=== PATIENT | male | born 1960 | race Caucasian/White ===

== ENCOUNTER → 2018-02-23 09:59 | Outpatient (CLI) | payer OTHER, SELFPAY ==
[2018-02-23 11:02] LABS: Anion Gap 9 (5-15); BUN 15 mg/dL (7-18); BUN/Creat Ratio 12.3 RATIO (10-20); Calcium,Total 9.1 mg/dL (8.5-10.1); Chloride 104 mmol/L (98-107); Cholesterol 145 mg/dL (200); Creatinine, Serum 1.22 mg/dL (0.70-1.30); EST Glomerular Filtration Rate 65 mL/min (>60); Est Glom Filt Rate - Afr Amer 79 mL/min (>60); Glucose 92 mg/dL (74-106); High Density Lipoprotein 32 mg/dL; Potassium 3.6 mmol/L (3.5-5.1); Sodium Level 141 mmol/L (136-145); Triglycerides 294 mg/dL; Very Low Density Lipoprotein 59 mg/dL (5-40)
== END ==
PROVIDERS: Family Provider Family Medicine; PCP Family Medicine; Visit Provider Family Medicine
DX: I10 Essential (primary) hypertension (principal)
CPT/HCPCS: 36415; 80048; 80061

== ENCOUNTER → 2018-08-31 09:32 | Outpatient (CLI) | payer OTHER, SELFPAY ==
[2018-08-31 11:19] LABS: Anion Gap 6 (5-15); BUN 12 mg/dL (7-18); BUN/Creat Ratio 10.7 RATIO (10-20); Calcium,Total 8.6 mg/dL (8.5-10.1); Chloride 107 mmol/L (98-107); Cholesterol 150 mg/dL (200); Creatinine, Serum 1.12 mg/dL (0.70-1.30); EST Glomerular Filtration Rate 72 mL/min (>60); Est Glom Filt Rate - Afr Amer 87 mL/min (>60); Glucose 88 mg/dL (74-106); High Density Lipoprotein 28 mg/dL; Potassium 3.6 mmol/L (3.5-5.1); Sodium Level 141 mmol/L (136-145); Triglycerides 335 mg/dL; Very Low Density Lipoprotein 67 mg/dL (5-40)
== END ==
PROVIDERS: Family Provider Family Medicine; PCP Family Medicine; Referring Provider Family Medicine; Visit Provider Family Medicine
DX: I10 Essential (primary) hypertension (principal)
CPT/HCPCS: 36415; 80048; 80061

== ENCOUNTER → 2019-03-01 | Outpatient (CLI) | payer OTHER, SELFPAY ==
[2016-11-06 17:56] VITALS: BMI 36.0
[2019-03-01 10:21] LABS: Cholesterol 174 mg/dL (200); High Density Lipoprotein 29 mg/dL; Triglycerides 373 mg/dL; Very Low Density Lipoprotein 75 mg/dL (5-40)
== END | disposition home or self-care (01) ==
PROVIDERS: Family Provider Family Medicine; PCP Family Medicine; Referring Provider Family Medicine; Visit Provider Family Medicine
DX: E78.00 Pure hypercholesterolemia, unspecified (principal)
CPT/HCPCS: 36415; 80061

== ENCOUNTER → 2019-06-23 | Outpatient (CLI) | payer OTHER, SELFPAY ==
[2019-06-23 15:52] LABS: Uric Acid 7.1 mg/dL (3.5-7.2)
== END | disposition home or self-care (01) ==
LOC: MFPLAB 13:45
PROVIDERS: Family Provider Family Medicine; PCP Family Medicine; Visit Provider Family Medicine
DX: M10.9 Gout, unspecified (principal)
CPT/HCPCS: 36415; 84550

== ENCOUNTER → 2019-09-27 08:42 | Outpatient (CLI) | payer OTHER, SELFPAY ==
[2016-11-06 17:56] VITALS: BMI 36.0
[2019-09-27 09:48] LABS: Anion Gap 9 (5-15); BUN 17 mg/dL (7-18); BUN/Creat Ratio 14.9 RATIO (10-20); Calcium,Total 9.1 mg/dL (8.5-10.1); Chloride 105 mmol/L (98-107); Cholesterol 177 mg/dL (200); Creatinine, Serum 1.14 mg/dL (0.70-1.30); EST Glomerular Filtration Rate 70 mL/min (>60); Est Glom Filt Rate - Afr Amer 85 mL/min (>60); Glucose 94 mg/dL (74-106); High Density Lipoprotein 26 mg/dL; Potassium 3.6 mmol/L (3.5-5.1); Sodium Level 143 mmol/L (136-145); Triglycerides 356 mg/dL; Very Low Density Lipoprotein 71 mg/dL (5-40)
== END ==
PROVIDERS: Family Provider Family Medicine; PCP Family Medicine; Referring Provider Family Medicine; Visit Provider Family Medicine
DX: I10 Essential (primary) hypertension (principal)
CPT/HCPCS: 36415; 80048; 80061

== ENCOUNTER → 2020-07-10 09:34 | Outpatient (CLI) | payer OTHER, SELFPAY ==
[2016-11-06 17:56] VITALS: BMI 36.0
[2020-07-10 11:03] LABS: Anion Gap 7 (5-15); BUN 19 mg/dL (7-18); BUN/Creat Ratio 14.8 RATIO (10-20); Calcium,Total 9.2 mg/dL (8.5-10.1); Chloride 107 mmol/L (98-107); Cholesterol 170 mg/dL (200); Creatinine, Serum 1.28 mg/dL (0.70-1.30); EST Glomerular Filtration Rate 61 mL/min (>60); Est Glom Filt Rate - Afr Amer 74 mL/min (>60); Glucose 94 mg/dL (74-106); High Density Lipoprotein 29 mg/dL; Potassium 3.5 mmol/L (3.5-5.1); Sodium Level 140 mmol/L (136-145); Triglycerides 339 mg/dL; Very Low Density Lipoprotein 68 mg/dL (5-40)
[2020-07-10 11:46] LABS: Microalbumin,Random Urine 7.7 mg/L (NO RANGE EST.); Microalbumin:Creatinine Ratio 5.2 mg/g CRE (<30 mg/g CRE)
== END ==
PROVIDERS: PCP Family Medicine; Referring Provider Family Medicine; Visit Provider Family Medicine
DX: I10 Essential (primary) hypertension (principal)
CPT/HCPCS: 80048; 80061; 82043; 82570

== ENCOUNTER → 2021-01-15 09:00 | Outpatient (CLI) | payer OTHER, SELFPAY ==
[2016-11-06 17:56] VITALS: BMI 36.0
[2021-01-15 10:34] LABS: Anion Gap 7 (5-15); BUN 16 mg/dL (7-18); BUN/Creat Ratio 13.8 RATIO (10-20); Calcium,Total 9.3 mg/dL (8.5-10.1); Chloride 105 mmol/L (98-107); Cholesterol 160 mg/dL (200); Creatinine, Serum 1.16 mg/dL (0.70-1.30); EST Glomerular Filtration Rate 68 mL/min (>60); Est Glom Filt Rate - Afr Amer 83 mL/min (>60); Glucose 84 mg/dL (74-106); High Density Lipoprotein 42 mg/dL; Potassium 3.8 mmol/L (3.5-5.1); Sodium Level 142 mmol/L (136-145); Triglycerides 218 mg/dL; Very Low Density Lipoprotein 44 mg/dL (5-40)
== END ==
PROVIDERS: PCP Family Medicine; Referring Provider Family Medicine; Visit Provider Family Medicine
DX: I10 Essential (primary) hypertension (principal)
CPT/HCPCS: 36415; 80048; 80061

== ENCOUNTER → 2021-07-16 09:32 | Outpatient (CLI) | payer OTHER, SELFPAY ==
[2021-07-16 11:07] LABS: Anion Gap 10 (5-15); BUN 25 mg/dL (7-18); BUN/Creat Ratio 14.6 RATIO (10-20); Calcium,Total 9.2 mg/dL (8.5-10.1); Chloride 106 mmol/L (98-107); Cholesterol 168 mg/dL (200); Creatinine, Serum 1.71 mg/dL (0.70-1.30); EST Glomerular Filtration Rate 44 mL/min (>60); Est Glom Filt Rate - Afr Amer 53 mL/min (>60); Glucose 106 mg/dL (74-106); High Density Lipoprotein 32 mg/dL; Potassium 3.7 mmol/L (3.5-5.1); Sodium Level 141 mmol/L (136-145); Triglycerides 240 mg/dL; Very Low Density Lipoprotein 48 mg/dL (5-40)
== END ==
PROVIDERS: PCP Family Medicine; Referring Provider Family Medicine; Visit Provider Family Medicine
DX: I10 Essential (primary) hypertension (principal)
CPT/HCPCS: 36415; 80048; 80061

== ENCOUNTER 2021-11-07 07:59 | Outpatient (CLI) | payer OTHER, SELFPAY | END 2021-11-07 23:59 | disposition short-term general hospital (02) | LOC: LABSPEC 11-08 07:59 | PROVIDERS: PCP Family Medicine; Referring Provider Family Medicine; Visit Provider Family Medicine | DX: U07.1 COVID-19 (principal) | CPT/HCPCS: 87635; U0003; U0005 ==

== ENCOUNTER → 2023-04-25 | Outpatient (CLI) | payer OTHER, SELFPAY ==
[2023-04-25 15:43] LABS: Absolute Lymphocyte Count 2.32 X10^3/uL (0.83-4.51); Absolute Neutrophil Count 7.2 X10^3/uL (2.0-7.7); Basophil# 0.07 X10^3/uL; Basophil% 0.6 % (0-1); Eosinophil# 0.18 X10^3/uL; Eosinophils% 1.7 % (0-5); Hematocrit 41.8 % (40-54); Hemoglobin 13.7 g/dL (13.0-16.5); Lymphocyte # 2.32 X10^3/ul (0.83-4.51); Lymphocyte % 21.5 % (19-41); Mean Corp Hgb Conc 32.8 g/dL (32-36); Mean Corpuscular Hgb 32.2 pg (27.0-32.0); Mean Corpuscular Volume 98.4 fL (80-94); Mean Platelet Vol. 10.8 fl (6.2-12.0); Monocyte# 0.94 X10^3/uL; Monocyte% 8.7 % (0-10); NRBC Flagged by Analyzer 0 % (0-5); Neutrophil # 7.21 X10^3/uL (2.7-7.7); Neutrophil % 66.9 % (47-70); Platelet Count 363 K/mm3 (150-450); RBC Distribution Width CV 12.8 % (11.6-14.6); RBC Distribution Width SD 45.9 fl (35.1-43.9); Red Blood Count 4.25 M/mm3 (4.6-6.2); White Blood Count 10.8 K/mm3 (4.4-11.0)
[2023-04-25 16:34] LABS: Anion Gap 6 (5-15); BUN 23 mg/dL (7-18); BUN/Creat Ratio 16.1 RATIO (10-20); Calcium,Total 9.5 mg/dL (8.5-10.1); Chloride 101 mmol/L (98-107); Creatinine, Serum 1.43 mg/dL (0.70-1.30); EST Glomerular Filtration Rate 53 mL/min (>60); Est Glom Filt Rate - Afr Amer 65 mL/min (>60); Glucose 99 mg/dL (74-106); Potassium 3.5 mmol/L (3.5-5.1); Sodium Level 135 mmol/L (136-145)
== END | disposition home or self-care (01) ==
LOC: MFPLAB 12:16
PROVIDERS: PCP Family Medicine; Visit Provider Family Medicine
DX: R60.0 Localized edema (principal)
CPT/HCPCS: 36415; 80048; 83880; 85025

== ENCOUNTER → 2023-05-02 | Outpatient (CLI) | payer OTHER, SELFPAY ==
--- NOTE | 2023-05-02 15:38 | VDLE_ITS ---
Reason For Study: RLE Pain RIGHT GSV is normal. CFV is compressible, spontaneous, phasic, competent and demonstrates normal augmentation. FV is compressible, spontaneous, phasic, competent and demonstrates normal augmentation. POP V is compressible, spontaneous, phasic, competent and demonstrates normal augmentation. T/P Trunk is compressible. PTV is compressible. RT PerV is compressible. Procedure This is a venous duplex using B-mode, color flow and spectral Doppler. Exam performed in department. The exam was diagnostic. A preliminary report was called and/or faxed to Dr. Duran office. VL/Venous Duplex US, Unilateral Interpretation Summary Deep veins of the right lower extremity are patent and compressible segmentally . There is no evidence of right lower extremity deep vein thrombosis. Valvular competence darlene ears intact within the proximal deep venous system on the right . The right great saphenous vein a ppears patent and compressible segmentally. Ordering Physician: Akhil Duran Referring Physician: Akhil Duran Performed By: Rojas Jimenez RVT
== END | disposition home or self-care (01) ==
LOC: CVS 14:51
PROVIDERS: PCP Family Medicine; Referring Provider Family Medicine; Visit Provider Family Medicine
DX: M79.604 Pain in right leg (principal)
CPT/HCPCS: 93971

== ENCOUNTER → 2023-12-29 | Outpatient (CLI) | payer OTHER, SELFPAY ==
--- OUTSIDE RECORDS SUMMARY | 2023-12-29 08:22 | XMS RPT_ITS | CCD ---
Author Name Unknown Address [address] [place] [address] Organization [facility] Allergies Allergy Classification Reported Allergen(s) Allergy Type Date of Onset Reaction(s) Facility (1 source) Erythromycin; Translations: [ERYTHROMYCIN] Drug Allergy 2 [facility] Repository (1 source) Penicillins; Translations: [PENICILLINS] Propensity to adverse reactions to drug (disorder) 2 [facility] Repository Results Test Name Value Interpretation Reference Range Facil ity Encounters Encounter Date Encounter Type Care Provider Facility Start: 01-15-2019 End: 01-16-2019 Patient encounter procedure [facility] Summary Purpose Family History No Family History Records Found Advance Directives No Advanced Directives Records Found Additional Source Comments (unrecognized sect ion and content) No Status Records Found INFORMATION SOURCE (unrecogn ized section and content) FOR RECORDS PERTAINING TO PATIENTS WHO ARE OR HAVE BEEN ENROLLED IN A CHEMICAL DEPENDENCY/SUBSTANCEABUSE PROGRAM, SOME INFORMATION MAY BE OMITTED. This clinical summary was aggregated from multiple sources. Caution should be exercised in using it in the provision of clinical care. This summary normalizes information from multiple sources, and as a consequence, information in this document may materially change the coding, format and clinical context of patient data. In addition, data may be omitted in some cases. CLINICAL DECISIONS SHOULD BE BASED ON THE PRIMARY CLINICAL RECORDS. [employer] provides no warranty or guarantee of the accuracy or completeness of information in this document.
[2023-12-29 10:02] LABS: Anion Gap 7 (5-15); BUN 14 mg/dL (7-18); Calcium,Total 9.6 mg/dL (8.5-10.1); Chloride 109 mmol/L (98-107); Cholesterol 208 mg/dL (200); Creatinine, Serum 1.27 mg/dL (0.70-1.30); EST Glomerular Filtration Rate 61 mL/min (>60); Est Glom Filt Rate - Afr Amer 74 mL/min (>60); Glucose 91 mg/dL (74-106); High Density Lipoprotein 31 mg/dL; PSA,Total - Annual Screen 2.08 ng/mL (0.00-4.00); Potassium 3.5 mmol/L (3.5-5.1); Sodium Level 142 mmol/L (136-145); Triglycerides 310 mg/dL; Very Low Density Lipoprotein 62 mg/dL (5-40)
== END | disposition home or self-care (01) ==
LOC: LAB 08:20
PROVIDERS: PCP Family Medicine; Referring Provider Family Medicine; Visit Provider Family Medicine
DX: Z00.00 Encounter for general adult medical examination without abnormal findings (principal)
CPT/HCPCS: 36415; 80048; 80061; 84153; G0103

== ENCOUNTER → 2024-05-31 | Outpatient (CLI) | payer OTHER, SELFPAY ==
[2024-05-31 10:25] LABS: Anion Gap 10 (5-15); BUN 15 mg/dL (7-18); BUN/Creat Ratio 10.2 RATIO (10-20); Calcium,Total 9.2 mg/dL (8.5-10.1); Chloride 106 mmol/L (98-107); Cholesterol 174 mg/dL (200); Creatinine, Serum 1.47 mg/dL (0.70-1.30); EST Glomerular Filtration Rate 51 mL/min (>60); Est Glom Filt Rate - Afr Amer 62 mL/min (>60); Glucose 98 mg/dL (74-106); High Density Lipoprotein 29 mg/dL; Potassium 3.6 mmol/L (3.5-5.1); Sodium Level 139 mmol/L (136-145); Triglycerides 336 mg/dL; Very Low Density Lipoprotein 67 mg/dL (5-40)
== END | disposition home or self-care (01) ==
LOC: LAB 09:05
PROVIDERS: PCP Family Medicine; Referring Provider Family Medicine; Visit Provider Family Medicine
DX: I10 Essential (primary) hypertension (principal)
CPT/HCPCS: 36415; 80048; 80061

== ENCOUNTER 2024-08-31 09:00 | Inpatient (IN) | payer OTHER, SELFPAY ==
[2024-08-31] VITALS (13 sets, daily range): BP systolic 131–155; BP diastolic 70–118; PULSE 113–145; RESP 18–34; TEMP 36.6–37.9; O2SAT 93–98; BMI 36.0; BMI 37.0
[2024-08-31] MEDS: Ipratropium/Albuterol Sulfate 3 ML AMPUL.NEB INHALATION (09:27)
[2024-08-31 09:32] LABS: Absolute Lymphocyte Count 1.59 X10^3/uL (0.83-4.51); Absolute Neutrophil Count 8.8 X10^3/uL (2.0-7.7); Basophil# 0.07 X10^3/uL; Basophil% 0.6 % (0-1); Hematocrit 44.8 % (40-54); Hemoglobin 15.3 g/dL (13.0-16.5); Lymphocyte # 1.59 X10^3/ul (0.83-4.51); Lymphocyte % 13.9 % (19-41); Mean Corp Hgb Conc 34.2 g/dL (32-36); Mean Corpuscular Hgb 32.4 pg (27.0-32.0); Mean Corpuscular Volume 94.9 fL (80-94); Mean Platelet Vol. 10.4 fl (6.2-12.0); Monocyte# 0.88 X10^3/uL; Monocyte% 7.7 % (0-10); NRBC Flagged by Analyzer 0 % (0-5); Neutrophil # 8.82 X10^3/uL (2.7-7.7); Neutrophil % 77.2 % (47-70); Platelet Count 292 K/mm3 (150-450); RBC Distribution Width CV 12.8 % (11.6-14.6); RBC Distribution Width SD 44.8 fl (35.1-43.9); Red Blood Count 4.72 M/mm3 (4.6-6.2); White Blood Count 11.4 K/mm3 (4.4-11.0)
[2024-08-31 09:53] LABS: Anion Gap 14 (5-15); BUN 14 mg/dL (7-18); BUN/Creat Ratio 7.5 RATIO (10-20); Calcium,Total 9.2 mg/dL (8.5-10.1); Chloride 101 mmol/L (98-107); Creatinine, Serum 1.86 mg/dL (0.70-1.30); EST Glomerular Filtration Rate 39 mL/min (>60); Est Glom Filt Rate - Afr Amer 47 mL/min (>60); Estimated Creatinine Clearance 51.37 ml/min; Glucose 163 mg/dL (74-106); Potassium 2.8 mmol/L (3.5-5.1); Sodium Level 138 mmol/L (136-145); Troponin-I HS 111 pg/mL (3.0-78.0)
[2024-08-31] MEDS: levoFLOXacin IV 750 MG/150 ML BAG 100 MG IV (10:38)
[2024-08-31 11:09] LABS: Lactic Acid 2.3 mmol/L (0.4-1.9)
[2024-08-31] MEDS: 0.9% Normal Saline (1000mL) 1,000 ML 999 ML IV (11:20)
[2024-08-31] MEDS: Acetaminophen 500 MG Tablet 1000 MG PO (11:22)
[2024-08-31] MEDS: KCl 20MEQ in D5NS 20 MEQ/1,000 ML IV.SOLN. 150 MEQ IV ×2 (13:29→21:16)
[2024-08-31] MEDS: Potassium Chloride Oral Tablet 20 MEQ 60 MEQ PO (13:29)
[2024-08-31 14:39] LABS: Reflex Lactate? Y
[2024-08-31 16:04] LABS: Lactic Acid 2.7 mmol/L (0.4-1.9)
[2024-08-31] MEDS: Albuterol 2.5 MG/3 ML VIAL.NEB. INHALATION ×2 (16:09→22:36)
[2024-08-31] MEDS: Metoprolol Tartrate 100 MG Tablet PO (21:09)
[2024-08-31] MEDS: Acetaminophen 325 MG Tablet 650 MG PO (21:09)
[2024-08-31] MEDS: Heparin Injection (Vial) 5,000 UNIT/ML VIAL 5000 UNIT SC (21:10)
[2024-08-31] MEDS: cloNIDine HCl 0.1 MG Tablet PO (21:10)
[2024-09-01] VITALS (10 sets, daily range): BP systolic 118–140; BP diastolic 79–90; PULSE 87–151; RESP 16–20; TEMP 36.5–37; O2SAT 96–98
[2024-09-01] MEDS: KCl 20MEQ in D5NS 20 MEQ/1,000 ML IV.SOLN. 150 MEQ IV (04:18)
[2024-09-01 05:55] LABS: Absolute Lymphocyte Count 1.59 X10^3/uL (0.83-4.51); Absolute Neutrophil Count 4.6 X10^3/uL (2.0-7.7); Basophil# 0.03 X10^3/uL; Basophil% 0.4 % (0-1); Eosinophil# 0.02 X10^3/uL; Eosinophils% 0.3 % (0-5); Hematocrit 36.5 % (40-54); Hemoglobin 12.1 g/dL (13.0-16.5); Lymphocyte # 1.59 X10^3/ul (0.83-4.51); Lymphocyte % 22.8 % (19-41); Mean Corp Hgb Conc 33.2 g/dL (32-36); Mean Corpuscular Hgb 32.3 pg (27.0-32.0); Mean Corpuscular Volume 97.3 fL (80-94); Mean Platelet Vol. 10.3 fl (6.2-12.0); NRBC Flagged by Analyzer 0 % (0-5); Neutrophil # 4.59 X10^3/uL (2.7-7.7); Neutrophil % 65.9 % (47-70); Platelet Count 194 K/mm3 (150-450); RBC Distribution Width CV 13.1 % (11.6-14.6); Red Blood Count 3.75 M/mm3 (4.6-6.2)
[2024-09-01 06:42] LABS: Anion Gap 5 (5-15); BUN 13 mg/dL (7-18); BUN/Creat Ratio 8.6 RATIO (10-20); Calcium,Total 7.8 mg/dL (8.5-10.1); Chloride 110 mmol/L (98-107); Creatinine, Serum 1.52 mg/dL (0.70-1.30); EST Glomerular Filtration Rate 49 mL/min (>60); Est Glom Filt Rate - Afr Amer 60 mL/min (>60); Estimated Creatinine Clearance 63.75 ml/min; Glucose 148 mg/dL (74-106); Potassium 3.5 mmol/L (3.5-5.1); Sodium Level 140 mmol/L (136-145)
[2024-09-01] MEDS: Albuterol 2.5 MG/3 ML VIAL.NEB. INHALATION ×3 (07:17→19:25)
[2024-09-01] MEDS: Lisinopril 20 MG Tablet PO ×2 (09:28→20:47)
[2024-09-01] MEDS: Acetaminophen 325 MG Tablet 650 MG PO (09:28)
[2024-09-01] MEDS: amLODIPine 10 MG Tablet PO (09:28)
[2024-09-01] MEDS: cloNIDine HCl 0.1 MG Tablet PO ×2 (09:28→20:47)
[2024-09-01] MEDS: Heparin Injection (Vial) 5,000 UNIT/ML VIAL 5000 UNIT SC (09:28)
[2024-09-01] MEDS: MethylPREDNISolone 125 MG/2 ML Vial 60 MG IV (09:29)
[2024-09-01] MEDS: Doxycycline 100 MG in Dextrose 5%-Water (250mL Bag) 250 ML 250 MG IV (09:58)
[2024-09-01 12:07] LABS: D-Dimer Quantitative (DVT/PE) 0.68 FEU/ug/m (0.27-0.49)
[2024-09-01 12:17] LABS: BNP,B-Type NATRIURETIC PEPTIDE 147.5 pg/mL (0-100)
[2024-09-01] MEDS: Ceftriaxone 1 GM/50 ML BAG IV (12:23)
[2024-09-01] MEDS: Furosemide 40 MG/4 ML Vial IV (13:05)
[2024-09-01] MEDS: Enoxaparin 40 MG/0.4 ML Syringe SC (14:28)
[2024-09-01 15:21] LABS: Troponin-I HS 70 pg/mL (3.0-78.0)
[2024-09-01] MEDS: hydroCHLOROthiazide 25 MG Tablet PO (20:47)
[2024-09-01] MEDS: Metoprolol Tartrate 100 MG Tablet PO (20:48)
[2024-09-01] MEDS: Fenofibrate 145 MG Tablet PO (20:48)
[2024-09-01] MEDS: 0.9% Saline Lock 10 ML Syringe IV (20:49)
[2024-09-02] VITALS (8 sets, daily range): BP systolic 114–156; BP diastolic 81–90; PULSE 78–110; RESP 16–20; TEMP 36.4–36.7; O2SAT 95–98
[2024-09-02] MEDS: Albuterol 2.5 MG/3 ML VIAL.NEB. INHALATION ×3 (01:21→13:30)
[2024-09-02] MEDS: 0.9% Saline Lock 10 ML Syringe IV (05:48)
[2024-09-02 07:23] LABS: Hematocrit 35.8 % (40-54); Mean Corp Hgb Conc 33.5 g/dL (32-36); Mean Corpuscular Hgb 32.3 pg (27.0-32.0); Mean Corpuscular Volume 96.5 fL (80-94); Mean Platelet Vol. 11.3 fl (6.2-12.0); Platelet Count 234 K/mm3 (150-450); RBC Distribution Width CV 13.2 % (11.6-14.6); RBC Distribution Width SD 46.9 fl (35.1-43.9); Red Blood Count 3.71 M/mm3 (4.6-6.2); White Blood Count 7.7 K/mm3 (4.4-11.0)
[2024-09-02 08:03] LABS: Anion Gap 11 (5-15); BUN 18 mg/dL (7-18); BUN/Creat Ratio 12.1 RATIO (10-20); Calcium,Total 8.1 mg/dL (8.5-10.1); Chloride 103 mmol/L (98-107); Creatinine, Serum 1.49 mg/dL (0.70-1.30); EST Glomerular Filtration Rate 51 mL/min (>60); Est Glom Filt Rate - Afr Amer 61 mL/min (>60); Estimated Creatinine Clearance 65.04 ml/min; Glucose 155 mg/dL (74-106); Magnesium 1.5 mg/dL (1.6-2.6); Phosphorus 2.1 mg/dL (2.5-4.9); Potassium 3.1 mmol/L (3.5-5.1); Sodium Level 136 mmol/L (136-145)
[2024-09-02] MEDS: cloNIDine HCl 0.1 MG Tablet PO (08:19)
[2024-09-02] MEDS: amLODIPine 10 MG Tablet PO (08:19)
[2024-09-02] MEDS: Lisinopril 20 MG Tablet PO (08:19)
[2024-09-02] MEDS: Ceftriaxone 1 GM/50 ML BAG IV (08:20)
[2024-09-02] MEDS: hydroCHLOROthiazide 25 MG Tablet PO (08:20)
[2024-09-02] MEDS: Enoxaparin 40 MG/0.4 ML Syringe SC (08:20)
[2024-09-02] MEDS: Potassium Chloride Oral Tablet 20 MEQ 40 MEQ PO (10:46)
[2024-09-02] MEDS: Sodium Phosphate/Na Biphos 21 MMOL in 0.9% Normal Saline (250mL Bag) 250 ML 84 MMOL IV (11:38)
[2024-09-02] MEDS: Magnesium Sulfate 2 GM in Dextrose 5%-Water (100mL Bag) 100 ML IV (11:38)
== END 2024-09-02 15:06 | disposition home or self-care (01) | DRG 194 ==
LOC: ED 09:44 → PCU 11:46
PROVIDERS: Admitting Provider Internal Medicine; Emergency Provider Emergency Medicine; PCP Family Medicine; Visit Provider Internal Medicine
DX: J15.3 Pneumonia due to streptococcus, group B (principal); E87.20 Acidosis, unspecified; N18.31 Chronic kidney disease, stage 3a; I12.9 Hypertensive chronic kidney disease with stage 1 through stage 4 chronic kidney disease, or unspecified chronic kidney disease; Z68.37 Body mass index [BMI] 37.0-37.9, adult; E78.5 Hyperlipidemia, unspecified; E87.6 Hypokalemia; R79.89 Other specified abnormal findings of blood chemistry; R73.9 Hyperglycemia, unspecified; E66.9 Obesity, unspecified; Z79.2 Long term (current) use of antibiotics; R09.02 Hypoxemia
CPT/HCPCS: 36415; 71046; 80048; 83605; 83735; 83880; 84100; 84484; 85025; 85027; 85379; 87040; 87070; 87077; 87205; 87449; 87631; 87633; 93005; 94640; 94668; 99285; J7030; J7040; J7050; A4216; J1940

== ENCOUNTER → 2024-12-06 | Outpatient (CLI) | payer OTHER, SELFPAY ==
[2024-12-06 10:04] LABS: Anion Gap 7 (5-15); BUN 12 mg/dL (7-18); BUN/Creat Ratio 9.8 RATIO (10-20); Calcium,Total 9.4 mg/dL (8.5-10.1); Chloride 105 mmol/L (98-107); Cholesterol 170 mg/dL (200); Creatinine, Serum 1.23 mg/dL (0.70-1.30); EST Glomerular Filtration Rate 63 mL/min (>60); Est Glom Filt Rate - Afr Amer 76 mL/min (>60); Glucose 95 mg/dL (74-106); High Density Lipoprotein 36 mg/dL; Potassium 3.6 mmol/L (3.5-5.1); Sodium Level 138 mmol/L (136-145); Triglycerides 234 mg/dL; Very Low Density Lipoprotein 47 mg/dL (5-40)
== END | disposition home or self-care (01) ==
LOC: LAB 08:59
PROVIDERS: PCP Family Medicine; Referring Provider Family Medicine; Visit Provider Family Medicine
DX: I10 Essential (primary) hypertension (principal)
CPT/HCPCS: 36415; 80048; 80061

== ENCOUNTER → 2025-06-04 | Outpatient (CLI) | payer OTHER, SELFPAY ==
--- NOTE | 2025-06-04 08:47 | RAD_ITS ---
PROCEDURE: THORACIC SPINE 2 VIEWS 06/04/2025 REASON FOR EXAM: BACK ACHE TECHNIQUE: THORACIC SPINE 2 VIEWS COMPARISON: None. RAD/Thoracic Spine 2 Views IMPRESSION: Mild degenerative changes are seen throughout the thoracic spine, but with exte nsive/exuberant DISH also seen. No fracture or subluxation is evident. Reading Location: [place] [id number]
[2025-06-04 12:22] LABS: AST(SGOT) 25 U/L (<=37); Alanine Aminotransfer ALT/SGPT 16 U/L (<=46); Albumin, Serum 4.2 g/dL (3.4-4.8); Alkaline Phosphatase 39 U/L (40-129); Anion Gap 16 (5-15); BUN 18 mg/dL (4-19); BUN/Creat Ratio 12.0 RATIO (10-20); Calcium,Total 9.6 mg/dL (7.6-11.0); Carbon Dioxide 21.7 mmol/L (21.0-32.0); Chloride 102 mmol/L (98-108); Cholesterol 174 mg/dL (<=200); Globulin 3.2 g/dL (2.2-4.2); Glucose 95 mg/dL (70-99); Low Density Lipoprotein Calc. 86 mg/dL; Potassium 3.9 mmol/L (3.3-5.1); Triglycerides 223 mg/dL; Very Low Density Lipoprotein 45 mg/dL (5-40); cholesterol:hdl ratio screen 4.02
[2025-06-04 13:10] LABS: Creatinine, Urine (random) 231.00 mg/dL (39.00-259.00); Microalbumin,Random Urine < 12.0 mg/L (<20 mg/L)
== END | disposition home or self-care (01) ==
LOC: MTLAB 08:45
PROVIDERS: PCP Family Medicine; Referring Provider Family Medicine; Visit Provider Family Medicine
DX: M54.9 Dorsalgia, unspecified (principal); I10 Essential (primary) hypertension
CPT/HCPCS: 36415; 72070; 80053; 80061; 82043; 82570

== ENCOUNTER → 2025-09-16 | Outpatient (CLI) | payer OTHER, SELFPAY ==
--- OUTSIDE RECORDS SUMMARY | 2025-09-16 06:33 | XMS RPT_ITS | CCD ---
Author Organization [facility] Inform ion Partnership [facility] Care Team Providers Care Assistant Professor Of Mathematics Name Role Phone Akhil Cox MD Primary Care Provider Brooke MALDONADO, Dr. Landaverde Primary Care Provider Brooke MALDONADO, Dr. Landaverde Attending Provider Brooke MALDONADO, Dr. Landaverde Referring Provider Brooke MALDONADO, Akhil Malhotra Primary Care Provider AKHIL COX Primary Care Unavailable AKHIL COX Primary Care Unavailable HEENA HARRIS Referring Unavailable COX, AKHIL Malhotra Primary Care Unavailable HEENA HARRIS Attending Unavailable BRANDI BIRMINGHAM Referring Unavailable BROOKE, AKHIL Malhotra Primary Care Unavailable BRANDI BIRMINGHAM Attending Unavailable AKHIL COX Primary Care Unavailable Cox, Akhil Referring Unavailable Cox, Akhil Attending Unavailable Cox, Akhil Primary Care Unavailable Cox, Akhil Attending Unavailable Brooke, Akhil Primary Care Unavailable Akhil Cox Referring Unavailable Afia Lebron Referring Unavailable Afia Lebron Attending Unavailable Cox, Akhil Primary Care Unavailable Cox, Akhil Referring Unavailable BernardinoAfia goodwin Attending Unavailable Cox, Akhil Primary Care Unavailable Ron, Mario Attending Unavailable Brooke, Akhil Primary Care Unavailable Allergies Allergy Classification Reported Allergen(s) Allergy Type Date of Onset Reaction(s) Facility (5 sources) Erythromycin Drug Allergy 2 [facility] (3 sources) Penicillins; Translations: [PENICILLINS] Allergy to substance 2 [facility] (1 source) Penicillins Drug Intolerance 2 [facility] (2 sources) Penicillins Drug Intolerance 2 [facility] (1 source) Erythromycin; Translations: [ERYTHROMYCIN] Drug Allergy 2 [facility] (1 source) Erythromycin Drug Allergy 5 [facility] (1 source) Penicillins Drug allergy (disorder) 5 [facility] Medications Current Medications Medication Drug Class(es) Dates Sig (Normalized) Sig (Original) amLODIPine 10 mg oral tablet (5 sources) Dihydropyridine Calcium Channel César Start: 10-27-2016 take 1 tablet by mouth once daily Amlodipine (Norvasc) 10 MG tablet Active 10 mg PO DAILY October 27, 2016 1:00am Start: 01-18-2012 take 1 tablet by sebastian th once daily amLODIPine (NORVASC) 5 mg ORAL tablet Take 1 tablet by mouth once daily. 0 01/18/2012 Active benzonatate 100 mg oral capsule (2 sources) Non-narcotic Antitussive Start: 06-16-2025 take 2 capsules by mouth three times daily as needed benzonatate (TESSALON PERLE) 100 mg capsule Indications: Acute cough Take 2 capsules by mouth three times a day as needed. 60 capsule 06/16/2025 Active Start: 09-02-2024 take 1 capsule by mo uth three times daily as needed for cough Benzonatate 100 mg capsule Active 100 mg PO THREE TIMES A DAY as needed for cough 21 September 02, 2024 12:57pm cefdinir 300 mg oral capsule (1 source) Cephalosporin Antibacterial Start: 09-02-2024 take 1 capsule by mouth twice daily Cefdinir 300 mg capsule Active 300 mg PO TWICE A DAY 10 September 02, 2024 1:00am clindamycin 150 mg oral capsule (3 sources) Lincosamide Antibacterial Start: 01-15-2019 clindamycin (CLEOCIN) 150 mg capsule Take 1 capsule by mouth as needed (1 hour before dental procedures). 01/15/2019 Active cloNIDine hydrochloride 0.1 mg oral tablet (5 sources) Central alpha-2 Adrenergic Agonist Start: 10-27-2016 take 1 tablet by mouth twice daily Clonidine Hcl 0.1 MG tablet Active 0.1 mg PO TWICE A DAY October 27, 2016 1:00am fenofibrate 145 mg oral tablet (5 sources) Peroxisome Proliferator Receptor alpha Agonist Start: 10-27-2016 take 1 tablet by mouth at bedtime Fenofibrate Nanocrystallized 145 MG tablet Active 145 mg PO AT BEDTIME October 27, 2016 1:00am Start: 01-18-2012 take 1 tablet by sebastian th once daily fenofibrate nanocrystallized (TRICOR) 48 mg ORAL tablet Take 1 tablet by mouth once daily. 0 01/18/2012 Active hydroCHLOROthiazide 25 mg / lisinopril 20 mg oral tablet (5 sources) Thiazide Diuretic, Angiotensin Converting Enzyme Inhibitor Start: 10-27-2016 take 1 tablet by mouth twice daily Lisinopril-Hydrochlorothiazide (Zestoretic) 1 EACH tablet Active 1 NMA PO TWICE A DAY October 27, 2016 1:00am Start: 01-18-2012 take 1 tablet by sebastian th once daily lisinopril-hydrochlorothiazide 20-12.5 m g ORAL per tablet Take 1 tablet by mouth once daily. 0 01/18/2012 Active metoprolol tartrate 100 mg oral tablet (5 sources) beta-Adrenergic César Start: 10-27-2016 take 1 tablet by mouth at bedtime Metoprolol Tartrate 100 MG tablet Active 100 mg PO AT BEDTIME October 27, 2016 1:00am Start: 01-18-2012 take 1 tablet by sebastian th once daily metoprolol succinate XL, long acting, 25 mg ORAL 24 hr tablet Take 1 tablet by mouth once daily. 30 tablet 0 01/18/2012 Active abuse-deterrent 12 hr oxyCODONE hydrochloride 10 mg extended release oral tablet (2 sources) Opioid Agonist Start: 11-08-2016 take 1 tablet by mouth twice daily Oxycodone (Oxycontin) 10 MG tablet Active 10 MG PO TWICE A DAY November 08, 2016 12:00am Start: 11-08-2016 End: 08-31-2024 take 1 tablet by mouth twice daily Oxycodone (Oxycontin) 10 MG tablet Discontinued 10 mg PO TWICE A DAY November 08, 2016 1:00am August 31, 2024 12:13pm polymyxin b [id number] unt/ml / trimethoprim 1 mg/ml ophthalmic solution (1 source) Dihydrofolate Reductase Inhibitor Antibacterial, Polymyxin-class Antibacterial Start: 06-16-2025 End: 06-23-2025 take 1 drop(s) into the eye(s) four times daily polymyxin B-trimethoprim (POLYTRIM) 10,000 unit- 1 mg/mL ophthalmic solution Use 1 drop in both eyes four times daily for 7 days. 10 mL 06/16/2025 06/23/2025 Active predniSONE 10 mg oral tablet (1 source) Start: 09-02-2024 Prednisone 10 mg tablet Active 10 mg PO DAILY 30 September 02, 2024 1:00am 4 tablets x 3 days, 3 tablets x 3 days, 2 tablets x 3 days, 1 tablet x 3 days then stop Completed/Discontinued Medications Medication Drug Class(es) Dates Sig (Normalized) Sig (Original) acetaminophen 325 mg / oxyCODONE hydrochloride 5 mg oral tablet (2 sources) Opioid Agonist Start: 11-08-2016 End: 08-31-2024 Oxycodone-Acetamino phen 1 TABLET tablet Discontinued 1 - 2 {tbl} PO EVERY 6 HOURS NEEDED as needed for Pain 60 November 08, 2016 1:00am August 31, 2024 12:13pm Start: 11-08-2016 take 1 tablet by sebastian th every six hours as needed Oxycodone-Acetaminophen Active 1 - 2 TABLET PO EVERY 6 HOURS NEEDED 60 November 08, 2016 12:00am docusate sodium 50 mg / sennosides, [facility] 8.6 mg oral tablet (2 sources) Start: 11-08-2016 End: 08-31-2024 take 1 tablet by mouth twice daily Sennosides-Docusate Sodium (Stool Softener-Stimulant Laxat) 1 TABLET tablet Discontinued 2 {tbl} PO TWICE A DAY 10 November 08, 2016 1:00am August 31, 2024 12:14pm meloxicam 15 mg oral tablet (2 sources) Nonsteroidal Anti-inflammatory Drug Start: 10-27-2016 End: 11-08-2016 take 1 tablet by mouth once daily Meloxicam 15 MG tablet Discontinued 15 mg PO DAILY October 27, 2016 1:00am November 08, 2016 3:39pm Multivitamin With Folic Acid (Thera) 1 TABLET tablet (2 sources) Start: 10-27-2016 End: 08-31-2024 take 1 tablet by mouth once daily Multivitamin With Folic Acid (Thera) 1 TABLET tablet Discontinued 1 {tbl} PO DAILY October 27, 2016 1:00am August 31, 2024 12:13pm Start: 10-27-2016 take 1 tablet by sebastian th once daily Multivitamin With Folic Acid (Thera) 1 TABLET tablet Active 1 TABLET PO DAILY October 27, 2016 12:00am rivaroxaban 10 mg oral tablet (2 sources) Factor Xa Inhibitor Start: 11-08-2016 End: 08-31-2024 take 1 tablet by mouth once daily Rivaroxaban (Xarelto) 10 MG tablet Discontinued 10 mg PO DAILY@0600 28 0 November 08, 2016 1:00am August 31, 2024 12:14pm Problems Problem Classification Problem Date Documented Date Episodic/Chronic Cardiac dysrhythmias (1 source) Tachycardia; Translations: [Tachycardia, unspecified] 09-10-2024 Episodic Chronic kidney disease (1 source) Chronic kidney disease; Translations: [Chronic kidney disease, unspecified] 08-31-2024 Chronic Essential hypertension (1 source) Essential (primary) hypertension; Translations: [Essential (primary) hypertension] Onset: 12-22-2024 Chronic Fluid and electrolyte disorders (1 source) Lactic acidosis; Translations: [Lactic acidosis] 09-10-2024 Episodic Inflammation; infection of eye (except that caused by tuberculosis or sexually transmitteddisease) (2 sources) Acute conjunctivitis of bilateral eyes; Translations: [Unspecified acute conjunctivitis, bilateral] Onset: 06-16-2025 06-17-2025 Episodic Other lower respiratory disease (1 source) Dyspnea; Translations: [Shortness of breath] 08-31-2024 Episodic Other lower respiratory disease (1 source) Tachypnea; Translations: [Tachypnea, not elsewhere classified] 08-31-2024 Episodic Other lower respiratory disease (2 sources) Cough; Translations: [Acute cough] 06-16-2025 Episodic Other screening for suspected conditions (not mental disorders or infectious disease) (1 source) Raised cardiac enzyme or marker; Translations: [Other specified abnormal findings of blood chemistry] 09-10-2024 Episodic Other upper respiratory infections (2 sources) Viral upper respiratory tract infection; Translations: [Acute upper respiratory infection, unspecified] Onset: 06-16-2025 06-16-2025 Episodic Pneumonia (except that caused by tuberculosis or sexually transmitted disease) (1 source) Pneumonia; Translations: [Pneumonia, unspecified organism] 08-31-2024 Episodic Spondylosis; intervertebral disc disorders; other back problems (3 sources) Pain in thoracic spine; Translations: [Spinal stenosis, lumbar region with neurogenic claudication] Onset: 07-20-2025 Episodic Unclassified (1 source) Lumbar pain; Translations: [Lumbar pain] Onset: 07-20-2025 Unclassified (1 source) Acute cough; Translations: [Acute cough] Onset: 06-16-2025 Unclassified (1 source) Other intervertebral disc degeneration, lumbar region with discogenic back pain and lower extremity pain; Translations: [Other intervertebral disc degeneration, lumbar region with discogenic back pain and lower extremity pain] Onset: 09-08-2025 Results Test Name Value Interpretation Reference Range Facility L/S Spine Bending Flex/[place] 09-04-2025 L/S Spine Bending Flex/Ext [facility] Imaging Services [address] [place] [address] L/S Spine Bending Flex/Ext MR#: [id number] Acct: [id number] Name: CHET CONTRERAS Rep #: [id number] : 1960 M 65 From: Usman Foy MD PCP: Dr. Akhil Cox MD Status: DEP AMB Study: L/S Spine Bending Flex/Ext Date of Exam: 09/04 Exam# [id number] Ordering Dr: Afia Lebron PROCEDURE: L/S SPINE BENDING FLEX/EXT 09/04/2025 REASON FOR EXAM: BACK PAIN TECHNIQUE: Procedure Code: [id number] Modality: DX Procedure: L/S SPINE BENDING FLEX/EXT FINDINGS: No evidence of acute fracture or dislocation. Moderate degenerative changes of the visualized spine. Vertebral body heights are maintained. Grade 1 retrolisthesis of L2 on L3. RAD/L/S Spine Bending Flex/Ext IMPRESSION: Spondylosis. Spondylolisthesis. Reading Location: [id number] CC: BLAYNE Amaya; Dr. Akhil Cox MD Medical Secretary Teacher: Signed Normal [facility] Orthopedic Visit Reporton Orthopedic Visit Report [facility] [address] [place] [address] [address] [place], [place] [id number] OFFICE VISIT Date of Service: 09/04/25 MR#: [id number] Acct: [id number] Name: CHET CONTRERAS Rep #: [id number] : 1960 Provider: BLAYNE Amaya Age/Sex: 65/M [place] [facility] [place] Status: Signed Intake Vital Signs 08/31/24 12:30 09/04/25 09:46 Height 5 ft 10 in 5 ft 10 in Weight: 253 lb 8 oz BMI 36.3 Intake Visit Reasons: LUMBAR SPINE Chief Complaint: Lumbar Spine Pain Accompanied by: Self Is patient in pain?: Yes Pain scale (1-10): 5 Allergies erythromycin base Allergy (Verified 09/04/25 09:46) Hives Penicillins (PCN) Allergy (Verified 09/04/25 09:46) Hives Medications ???Medication ???Instructions ???Recorded ???Confirmed ???Type amlodipine 10 mg tablet (Norvasc) 10 mg PO DAILY 10/27/16 09/04/25 History clonidine HCl 0.1 mg tablet 0.1 mg PO BID 10/27/16 09/04/25 Hi story fenofibrate nanocrystallized 145 145 mg PO QHS 10/27/16 09/04/25 Hi story mg tablet lisinopril 20 1 ea PO BID 10/27/16 09/04/25 Hist ory mg-hydrochlorothiazid e 25 mg tablet (Zestoretic) clindamycin HCl 300 mg capsule 600 mg PO 09/04/25 09/04/25 Histor y cyclobenzaprine 5 mg tablet 5 mg PO TID PRN muscle spasm #30 1 11/04/24 09/04/25 Rx tabs meloxicam 15 mg tablet 15 mg PO QDAY #30 tabs 09/04/25 Rx metoprolol succinate 100 mg mg PO QDAY 09/04/25 09/04/25 Histo ry tablet,extended release 24 hr [id number] c acid-vit 1 tab PO QDAY 09/04/25 09/04/25 Hi story K-lycop 400 mcg-20 mcg-370 mcg tablet (Men's 50 Plus Multivitamin) PFSH Medical History (Updated 09/04/25 @ 10:26 by BLAYNE Amaya) Hypertension Surgical History (Updated 09/04/25 @ 09:49 by Lily Nasima) 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 Part of today???s visit was documented by Lily Malhotra ATC, acting as scribe. CHET CONTRERAS is a 65 year old M here today for lumbar spine pain. Patient rates his pain a 5/10 today. He states the back has been bothering him since he had his first hip replacement in 2016. Patient had a fall 2 to 3 months ago, he says that following the fall he feels like his symptoms have been worsening. He denies any new symptoms after the fall just a worsening in his current symptoms. Says that he gets numbness that extends down the anterior thighs in the bilateral legs and stops at the knees. Walking and standing seems to worsen the symptoms. Patient says that when he goes to the grocery store he needs to lean on a shopping cart in order to get through the store. Sitting makes the symptoms improved. Feels like he has been dragging his feet more frequently over the last several months. Says that he feels a little bit more unsteady on his feet but he feels like this is related to the increase in his lower back pain. He denies any dexterity issues any neck pain or any radicular symptoms into his arms. This is equal in both legs. He denies any numbness or tingling that extends further below the knee. He also denies any pain in the legs just the numbness. He states he had a spinal done and then the next year when they did the other hip they couldn't get the needle in for a spinal and had to get injected. He states it has progressively gotten worse over the years. He did have a fall about 2-3 months ago and he had imaging done at [facility] and was told nothing was broken. He describes the pain in the midline of the lumbar spine and will get numbness in bilateral legs and it causes him difficulty walking. He denies any injections, physical therapy or prior surgery. He denies any pain medication for the pain. He has tried tylenol arthritis and it didn't seem to give him any relief so he stopped taking it. No diabetes, no heart or lung issues, no blood thinners. Ortho Exam General General: Yes no acute distress Neurologic: Yes alert and Yes oriented x3 Psychologic: Yes reasonable and appropriate Spine SPINE TESTING CERVICAL THORACIC LUMBAR Musculoskeletal Strength 0=absent - 5=normal Details: Neurological exam of the lower extremities shows grade 4 left hip flexion, all other muscle groups show 5 power. Normal sensations across all dermatomes. Slightly brisk right knee reflex. No midline or par (more content not included)... [facility] Visit ([facility]) PILAR CONTRERAS ([id number]) 1960 M Date Time Provider Department 07/20/25 11:30 AM HEENA HARRIS During your visit today, we recorded the following information about you: Temperature Pulse Respiration Blood pressure 97.8 degrees 75/minute 20/minute 100/58 Weight 111.6 kg Heena Harris APRN.LEAD SOFTWARE DEVELOPER 07/20/2025 2:19 PM Signed [facility] Subjective Pilar Contreras is a 65 year old male presenting with 5/10 lower back pain after a fall at home.happened a week ago has improved somewhat over the week but still painful. Patient denies hitting head during the fall. Associated symptoms include mild numbness down both legs to knee area, pain that radiates to the left and right. Reports taking tylenol arthritis for multiple doses which has not helped to alleviate his symptoms. Pertinent negatives include no fever, chills, loss of bowels or bladder, no shortness of breathe, or chest pain. Reports history of sciatic before his hips were replaced. Review of Systems Constitutional: Negative for chills, fatigue and fever. Respiratory: Negative for cough, chest tightness and shortness of breath. Cardiovascular: Negative for chest pain and leg swelling. Gastrointestinal: Negative for abdominal distention, abdominal pain, constipation, diarrhea, nausea and vomiting. Musculoskeletal: Positive for back pain. Negative for arthralgias, joint swelling and neck pain. Skin: Negative for color change and rash. Neurological: Positive for numbness (B/L legs). Negative for dizziness, syncope, weakness, light-headedness and headaches. Objective BP 100/58 Pulse 75 Temp 36.6 ?C (97.8 ?F) Resp 20 Wt 111.6 kg (246 lb 0.5 oz) SpO2 97% Physical Exam Vitals and nursing note reviewed. Constitutional: General: He is awake. Cardiovascular: Rate and Rhythm: Normal rate and regular rhythm. Heart sounds: Normal heart sounds, S1 normal and S2 normal. No murmur heard. Pulmonary: Effort: Pulmonary effort is normal. Breath sounds: Normal breath sounds. No decreased breath sounds or wheezing. Musculoskeletal: Cervical back: Normal, full passive range of motion without pain and normal range of motion. No swelling, edema, deformity, erythema, signs of trauma, lacerations, rigidity, spasms, tenderness or bony tenderness. No pain with movement. Normal range of motion. Thoracic back: Tenderness present. No swelling, edema, deformity, signs of trauma or spasms. Normal range of motion. Lumbar back: Tenderness and bony tenderness present. No swelling, edema, deformity, signs of trauma or spasms. Decreased range of motion. Negative right straight leg raise test and negative left straight leg raise test. No scoliosis. Back: Right hip: Normal. No deformity, tenderness or bony tenderness. Normal range of motion. Left hip: Normal. No deformity, tenderness or bony tenderness. Normal range of motion. Right upper leg: Normal. No swelling, edema or tenderness. Left upper leg: Normal. No swelling, edema or tenderness. Comments: No bulging disc, ecchymosis, bruising or erythema on spine. strength and resistance 5/5 all extremities. Full Forward flexion without resistance. Full bilateral Lateral flexion Gait steady. Good standing balance. - frequent repositioning while in sitting position. Skin: General: Skin is warm. Capillary Refill: Capillary refill takes less than 2 seconds. Neurological: Mental Status: He is alert and oriented to person, place, and time. Psychiatric: Mood and Affect: Mood normal. {ASSESSMENT/PLAN: 1. Acute thoracic back pain, unspecified back pain laterality - ICD9: 724.1, ICD10: M54.6 Mechanical low back pain - Bedrest for 2-3 days - Ice for localized tenderness - Warm moist heat for 20 min three times a day - Muscle relaxant- see orders - Patient given instructions use of medications as ordered, intermittent rest, improved posture, proper lifting techniques, intermittent use of heat, and avoiding sleeping on a heating pad - Follow up in 5 days or sooner if symptoms persist or worsen - XR LUMBAR GENERAL 3V AP/LAT/L5-S1 - XR SACRUM/COCCYX 3V AP/LAT - XR THORACIC LIMITED 2V AP/LAT Impression for all 3 x-rays shows: IMPRESSION: No acute fracture. 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 - PREDNISONE 10 MG TABLET - Taper - CYCLOBENZAPRINE 10 MG TABLET - Educated to avoid lifting heavy objects, operating heavy machinery, and driving while taking this medication. Educated patient to take this medication at night because it can cause drowsiness. Disposition The patient was discharged. OTC Medications were advised: Ibuprofen or Acetaminophen Procedures Discussed medication dosage, usage, goals of therapy, and side effects. Return to [facility], call primary care provider, or go to the emergency (more content not included)... Normal [facility] XR LUMBAR 3V AP/LAT/L5-S1on 07-20-2025 XR LUMBAR 3V AP/LAT/L5-S1 * * *Final Report* * * DATE OF EXAM: Jul 20 2025 12:28PM [id number] - XR LUMBAR 3V AP/LAT/L5-S1 / PROCEDURE REASON: Lumbar pain * * * * Physician Interpretation * * * * EXAMINATION: XR SACRUM/COCCYX 3V AP/LAT, XR LUMBAR 3V AP/LAT/L5-S1, XR THORACIC 2V AP/LAT CLINICAL HISTORY: Back pain Technique: XR SACRUM/COCCYX 3V AP/LAT, XR LUMBAR 3V AP/LAT/L5-S1, XR THORACIC 2V AP/LAT -- NOT APPLICABLE with 3 (accession [id number]), 3 (accession [id number]), 2 (accession [id number]) views on 3 (accession [id number]), 3 (accession [id number]), 2 (accession [id number]) images Comparison: None RESULT: Counting reference: Lumbosacral junction. For the purposes of this report, L4-5 is considered the level of the iliac crest and assume there are 5 lumbar-type vertebrae. Anatomic variant: None. No acute fracture or facet subluxation. Dextroscoliosis of the thoracolumbar spine. 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 Bilateral hip prostheses. IMPRESSION: No acute fracture. 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 Medical Secretary Teacher: In[employer] Transcribe Date/Time: Jul 20 2025 1:29P Dictated by : TONI VARGAS MD This examination was interpreted and the report reviewed and electronically signed by: TONI VARGAS MD on Jul 20 2025 1:34PM EST [id number] Normal [facility] XR SACRUM/COCCYX 3V AP/LATon 07-20-2025 XR SACRUM/COCCYX 3V AP/LAT * * *Final Report* * * DATE OF EXAM: Jul 20 2025 12:28PM [id number] - XR SACRUM/COCCYX 3V AP/LAT / PROCEDURE REASON: Lumbar pain * * * * Physician Interpretation * * * * EXAMINATION: XR SACRUM/COCCYX 3V AP/LAT, XR LUMBAR 3V AP/LAT/L5-S1, XR THORACIC 2V AP/LAT CLINICAL HISTORY: Back pain Technique: XR SACRUM/COCCYX 3V AP/LAT, XR LUMBAR 3V AP/LAT/L5-S1, XR THORACIC 2V AP/LAT -- NOT APPLICABLE with 3 (accession [id number]), 3 (accession [id number]), 2 (accession [id number]) views on 3 (accession [id number]), 3 (accession [id number]), 2 (accession [id number]) images Comparison: None RESULT: Counting reference: Lumbosacral junction. For the purposes of this report, L4-5 is considered the level of the iliac crest and assume there are 5 lumbar-type vertebrae. Anatomic variant: None. No acute fracture or facet subluxation. Dextroscoliosis of the thoracolumbar spine. 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 Bilateral hip prostheses. IMPRESSION: No acute fracture. 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 Medical Secretary Teacher: LESLIE Transcribe Date/Time: Jul 20 2025 1:29P Dictated by : TONI VARGAS MD This examination was interpreted and the report reviewed and electronically signed by: TONI VARGAS MD on Jul 20 2025 1:34PM EST [id number] Normal [facility] XR THORACIC 2V AP/LATon 06-30 XR THORACIC 2V AP/LAT * * *Final Report* * * DATE OF EXAM: Jul 20 2025 12:28PM WOX [id number] - XR THORACIC 2V AP/LAT / PROCEDURE REASON: Lumbar pain * * * * Physician Interpretation * * * * EXAMINATION: XR SACRUM/COCCYX 3V AP/LAT, XR LUMBAR 3V AP/LAT/L5-S1, XR THORACIC 2V AP/LAT CLINICAL HISTORY: Back pain Technique: XR SACRUM/COCCYX 3V AP/LAT, XR LUMBAR 3V AP/LAT/L5-S1, XR THORACIC 2V AP/LAT -- NOT APPLICABLE with 3 (accession [id number]), 3 (accession [id number]), 2 (accession [id number]) views on 3 (accession [id number]), 3 (accession [id number]), 2 (accession [id number]) images Comparison: None RESULT: Counting reference: Lumbosacral junction. For the purposes of this report, L4-5 is considered the level of the iliac crest and assume there are 5 lumbar-type vertebrae. Anatomic variant: None. No acute fracture or facet subluxation. Dextroscoliosis of the thoracolumbar spine. 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 Bilateral hip prostheses. IMPRESSION: No acute fracture. 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 Medical Secretary Teacher: PSCB Transcribe Date/Time: Jul 20 2025 1:29P Dictated by : TONI VARGAS MD This examination was interpreted and the report reviewed and electronically signed by: TONI VARGAS MD on Jul 20 2025 1:34PM EST [id number] Normal [facility] CNOVon 06-16-2025 CNOV Office Visit ([facility]) PILAR CONTRERAS ([id number]) 1960 M Date Time Provider Department 06/16/25 6:45 PM BRANDI [place] During your visit today, we recorded the following information about you: Temperature Pulse Respiration Blood pressure 99 degrees 105/minute 16/minute 118/72 Weight 113 kg Brandi [place], [place] 06/17/2025 8:22 AM Signed [facility] [place] Subjective Pilar Contreras is a 65 year old male. Patient presents with: Cough: Cough, ST, congestion and eye irritation x 2-3 days Cough Upper Respiratory Symptoms: - Cough productive of yellow-green sputum. - Congestion and sore throat, with pain rated 5/10. - Bilateral eye irritation with matting upon waking. - Intermittent chills; has not checked temperature at home. - Increased fatigue. - Took a previously prescribed yellow capsule for cough from a past pneumonia episode. Review of Systems Respiratory: Positive for cough. Constitutional: (+) chills, (+) fatigue, (+) diaphoresis Eyes: (+) bilateral eye irritation, (+) bilateral eye discharge Ears/Nose/Mouth/Throa t: (+) nasal congestion, (+) sore throat Respiratory: (+) productive cough Objective BP 118/72 Pulse 105 Temp 37.2 ?C (99 ?F) (Tympanic) Resp 16 Wt 113 kg (249 lb 1.9 oz) SpO2 98% PAST MEDICAL HISTORY Diagnosis Date HTN (hypertension) Hypertriglyceridemia PAST SURGICAL HISTORY Procedure Laterality Date ARTHRP ACETBLR/PROX FEM PROSTC AGRFT/ALGRFT Left ARTHRP ACETBLR/PROX FEM PROSTC AGRFT/ALGRFT Right VASECTOMY 2002 ALLERGIES Erythromycin and Penicillins MEDICATIONS cloNIDine HCl (CATAPRES) 0.1 mg tablet Take 0.1 mg by mouth twice daily. clindamycin (CLEOCIN) 150 mg capsule Take 1 capsule by mouth as needed (1 hour before dental procedures). amLODIPine (NORVASC) 5 mg ORAL tablet Take 1 tablet by mouth once daily. lisinopril-hydrochlor othiazide 20-12.5 mg ORAL per tablet Take 1 tablet by mouth once daily. metoprolol succinate XL, long acting, 25 mg ORAL 24 hr tablet Take 1 tablet by mouth once daily. fenofibrate nanocrystallized (TRICOR) 48 mg ORAL tablet Take 1 tablet by mouth once daily. benzonatate (TESSALON PERLE) 100 mg capsule Take 2 capsules by mouth three times a day as needed. polymyxin B-trimethoprim (POLYTRIM) 10,000 unit- 1 mg/mL ophthalmic solution Use 1 drop in both eyes four times daily for 7 days. FAMILY HISTORY Problem Relation Age of Onset Cancer Father 60 prostate Breast Cancer Mother 30 Heart Father SOCIAL HISTORY[1] Physical Exam Vitals and nursing note reviewed. Constitutional: General: He is not in acute distress. Appearance: Normal appearance. He is not ill-appearing. HENT: Right Ear: Tympanic membrane, ear canal and external ear normal. Left Ear: Tympanic membrane, ear canal and external ear normal. Nose: Nose normal. Mouth/Throat: Mouth: Mucous membranes are moist. Pharynx: Oropharynx is clear. Uvula midline. Posterior oropharyngeal erythema (slight) present. No pharyngeal swelling, oropharyngeal exudate, uvula swelling or postnasal drip. Tonsils: Tonsillar abscess present. No tonsillar exudate. Eyes: General: Lids are normal. Vision grossly intact. Gaze aligned appropriately. No allergic shiner. Right eye: No discharge or hordeolum. Left eye: No discharge or hordeolum. Conjunctiva/sclera: Right eye: Right conjunctiva is injected. No chemosis, exudate or hemorrhage. Left eye: Left conjunctiva is injected. No chemosis, exudate or hemorrhage. Cardiovascular: Rate and Rhythm: Normal rate and regular rhythm. Heart sounds: Normal heart sounds. Pulmonary: Effort: Pulmonary effort is normal. No respiratory distress. Breath sounds: Normal breath sounds. No wheezing or rales. Skin: General: Skin is warm and dry. Findings: No erythema or rash. Neurological: Mental Status: He is alert. { 1. Acute cough (R05.1) 2. Viral URI with cough (J06.9) - Productive cough with yellow-green sputum, congestion, sore throat (5/10 severity), intermittent chills, and fatigue; history of pneumonia. - Chest X-ray performed to rule out pneumonia; results normal, no acute radiographic abnormality. - Start Tessalon Perles as prescribed for cough. - Advised to use Tessalon Perles as directed and follow up with primary care provider if symptoms do not improve. 3. Acute conjunctivitis of both eyes, unspecified acute conjunctivitis type (H10.33) - Bilateral eye irritation with matting noted on waking. - Start Polytrim ophthalmic solution as prescribed. - Advised to use Polytrim as directed and follow up with primary care provider if symptoms do not improve. - Follow-up with your PCP in 3-5 days if symptoms have not improved or sooner if symptoms worsen - Discussed red flags and need for immediate medical evaluation if any occur. - Discussed supportive care brody (more content not included)... Normal [facility] XR CHEST 2V FRONTAL/LATon XR CHEST 2V FRONTAL/LAT * * *Final Repor t* * * DATE OF EXAM: Jun 16 2025 7:04PM WOX 5291 - XR CHEST 2V FRONTAL/LAT / PROCEDURE REASON: Acute cough * * * * Physician Interpretation * * * * EXAMINATION: CHEST RADIOGRAPH (2 VIEW FRONTAL and LATERAL) CLINICAL HISTORY: Acute cough MQ: XC2_6 EXAM DATE/TIME: 06/16/2025 7:04 PM COMPARISON: No relevant prior studies available. RESULT: Lines, tubes, and devices: None. Lungs and pleura: No consolidation. No lung mass. No pleural effusion. No pneumothorax. Cardiomediastinal silhouette: Normal cardiomediastinal silhouette. Bones and soft tissues: Degenerative disease of the thoracic spine. IMPRESSION: No acute radiographic abnormality. Medical Secretary Teacher: PSCFOLUP Transcribe Date/Time: Jun 16 2025 7:36P Dictated by : TONI VARGAS MD This examination was interpreted and the report reviewed and electronically signed by: TONI VARGAS MD on Jun 16 2025 7:37PM EST [id number] Normal [facility] XR Chest PA and Lateralon IMPRESSION: No acute radiographic abnormality. Medical Secretary Teacher: PSC Transcribe Date/Time: Jun 16 2025 7:36P Dictated by : TONI VARGAS MD This examination was interpreted and the report reviewed and electronically signed by: TONI VARGAS MD on Jun 16 2025 7:37PM [facility] DIVISION OF RADIOLOGY * * *Final Report* * * DATE OF EXAM: Jun 16 2025 7:04PM WOX 5291 - XR CHEST 2V FRONTAL/LAT / PROCEDURE REASON: Acute cough * * * * Physician Interpretation * * * * EXAMINATION: CHEST RADIOGRAPH (2 VIEW FRONTAL & LATERAL) CLINICAL HISTORY: Acute cough MQ: XC2_6 EXAM DATE/TIME: 06/16/2025 7:04 PM COMPARISON: No relevant prior studies available. RESULT: Lines, tubes, and devices: None. Lungs and pleura: No consolidation. No lung mass. No pleural effusion. No pneumothorax. Cardiomediastinal silhouette: Normal cardiomediastinal silhouette. Bones and soft tissues: Degenerative disease of the thoracic spine. DIVISION OF RADIOLOGY Provider, [facility] - 06/16/2025 * * *Final Report* * * DATE OF EXAM: Jun 16 2025 7:04PM WOX 5291 - XR CHEST 2V FRONTAL/LAT / PROCEDURE REASON: Acute cough * * * * Physician Interpretation * * * * EXAMINATION: CHEST RADIOGRAPH (2 VIEW FRONTAL & LATERAL) CLINICAL HISTORY: Acute cough MQ: XC2_6 EXAM DATE/TIME: 06/16/2025 7:04 PM COMPARISON: No relevant prior studies available. RESULT: Lines, tubes, and devices: None. Lungs and pleura: No consolidation. No lung mass. No pleural effusion. No pneumothorax. Cardiomediastinal silhouette: Normal cardiomediastinal silhouette. Bones and soft tissues: Degenerative disease of the thoracic spine. IMPRESSION IMPRESSION: No acute radiographic abnormality. Medical Secretary Teacher: PSCB Transcribe Date/Time: Jun 16 2025 7:36P Dictated by : TONI VARGAS MD This examination was interpreted and the report reviewed and electronically signed by: TONI VARGAS MD on Jun 16 2025 7:37PM [facility] Radiology Study observation (narrative) Beck Ramirez XR Chest PA and LateralOrder ed By: [facility] Provider on 06-16-2025 [facility] Anion gap in Serum or Plasma Ordered By: Akhil Cox on 06-04-2025 Anion gap [Moles/Vol] 16 mmol/L High 5-15 [place] BUN/creatinine ratioOrdered By: Akhil Cox on 06-04-2025 Urea nitrogen/Creatinine [Mass ratio] 12.0 mg/mg 10-20 [facility] Bilirubin, totalOrdered By: Akhil Cox on 06-04-2025 Bilirubin [Mass/Vol] 0.38 mg/dL 0.00-1.30 [facility] Calculated very low density lipoprotein (VLDL) cholesterol measurementOrdered By: Akhil Cox on 06-04-2025 Calculated very low density lipoprotein (VLDL) cholesterol measurement 45 mg/dL High 5-40 [facility] Carbon dioxide, total [Moles /volume] in Central venous bloodOrdered By: Akhil Cox on 06-04-2025 CO2 [Moles/Vol] 21.7 mmol/L 21.0-32.0 [facility] Chloride assayOrdered By: Blayne Cox on 06-04-2025 Chloride [Moles/Vol] 102 mmol/L 98-108 [facility] Comprehensive Metabolic Prof ilon 06-04-2025 Albumin [Mass/Vol] 4.2 g/dL Normal 3.4-4.8 [facility] Comment on above: Performed By: #### L 502.0250, L500.4100, L500.4050 #### [facility] [address] [place], [address] Albumin/Globulin [Mass ratio] 1.3 {ratio} Normal 0.9-2.4 [facility] Comment on above: Performed By: #### L 502.0250, L500.4100, L500.4050 #### [facility] [address] [place], [address] ALK PHOS 39 U/L Low 40-129 [facility] Comment on above: Performed By: #### L 502.0250, L500.4100, L500.4050 #### [facility] [address] [place], [address] ALT [Catalytic activity/Vol] 16 U/L Normal <=46 [facility] Comment on above: Performed By: #### L 502.0250, L500.4100, L500.4050 #### [facility] [address] [place], [address] AST [Catalytic activity/Vol] 25 U/L Normal <=37 [facility] Comment on above: Performed By: #### L 502.0250, L500.4100, L500.4050 #### [facility] [address] [place], [address] Bilirubin [Mass/Vol] 0.38 mg/dL Normal 0.00-1.30 [facility] Comment on above: Performed By: #### L 502.0250, L500.4100, L500.4050 #### [facility] [address] [place], [address] BUN/CRE 12.0 RATIO Normal 10-20 [facility] Comment on above: Performed By: #### L 502.0250, L500.4100, L500.4050 #### [facility] [address] [place], [address] Calcium [Mass/Vol] 9.6 mg/dL Normal 7.6-11.0 [facility] Comment on above: Performed By: #### L 502.0250, L500.4100, L500.4050 #### [facility] [address] [place], [address] Chloride [Moles/Vol] 102 mmol/L Normal 98-108 [facility] Comment on above: Performed By: #### L 502.0250, L500.4100, L500.4050 #### [facility] [address] [place], [address] CO2 [Moles/Vol] 21.7 mmol/L Normal 21.0-32.0 [facility] Comment on above: Performed By: #### L 502.0250, L500.4100, L500.4050 #### [facility] [address] [place], [address] Creatinine [Mass/Vol] 1.53 mg/dL High 0.70-1.20 [place] Comment on above: Performed By: #### L 502.0250, L500.4100, L500.4050 #### [facility] [address] [place], [address] GAP 16 High 5-15 [facility] Comment on above: Performed By: #### L 502.0250, L500.4100, L500.4050 #### [facility] [address] [place], [address] GFR/1.73 sq M.predicted among non-blacks MDRD (S/P/Bld) [Vol rate/Area] 50 mL/min/{1.73_m2} Low >60 [facility] Comment on above: Result Comment: mL/m in/1.73m2 CKD-EPI Creatinine Equation (2020) Performed By: #### L 502.0250, L500.4100, L500.4050 #### [facility] [address] [place], [address] Globulin (S) [Mass/Vol] 3.2 g/dL Normal 2.2-4.2 [facility] Comment on above: Performed By: #### L 502.0250, L500.4100, L500.4050 #### [facility] [address] [place], [address] Glucose [Mass/Vol] 95 mg/dL Normal 70-99 [facility] Comment on above: Performed By: #### L 502.0250, L500.4100, L500.4050 #### [facility] [address] [place], [address] Potassium [Moles/Vol] 3.9 mmol/L Normal 3.3-5.1 [place] Comment on above: Performed By: #### L 502.0250, L500.4100, L500.4050 #### [facility] [address] [place], [address] Sodium [Moles/Vol] 139 mmol/L Normal 133-145 [facility] Comment on above: Performed By: #### L 502.0250, L500.4100, L500.4050 #### [facility] [address] [place], [address] T PROT 7.4 g/dL Normal 5.9-8.4 [facility] Comment on above: Performed By: #### L 502.0250, L500.4100, L500.4050 #### [facility] [address] [place], [address] Urea nitrogen [Mass/Vol] 18 mg/dL Normal 4-19 [facility] Comment on above: Performed By: #### L 502.0250, L500.4100, L500.4050 #### [facility] [address] [place], [address] Glomerular filtration rate ( GFR) estimation/1.73 sq m using serum, plasma, or whole bOrdered By: Akhil Cox on 06-04-2025 GFR/1.73 sq M.predicted among non-blacks MDRD (S/P/Bld) [Vol rate/Area] 50 mL/min/{1.73_m2} Low >60 [facility] Comment on above: mL/min/1.73m2 CKD-EP I Creatinine Equation (2020) LDL calc ser/plasOrdered By: Akhil Cox on 06-04-2025 Cholesterol in LDL [Mass/Vol] 86 mg/dL [facility] Comment on above: Atlahpjozp=881-185 m g/dL & Higher Abfk=994 mg/dL or greaterFriedwald Equation for LDL-C Laboratory - Chemistry and C hemistry - challengeOrdered By: Akhil Cox on 06-04-2025 AST [Catalytic activity/Vol] 25 U/L <38 [facility] Lipid Profileon 06-04-2025 CHOL:HDL 4.02 Normal [facility] Comment on above: Performed By: #### L 502.0250, L500.4100, L500.4050 #### [facility] [address] [place], [address] Cholesterol [Mass/Vol] 174 mg/dL Normal <=200 [facility] Comment on above: Result Comment: Chol esterol level, Desirable <200 mg/dL Borderline high cholesterol 200-239 mg/dL High cholesterol >=240 mg/dL Recommendations of the NCEP Adult Treatment Panel for the following risk-cutoff thresholds for the [place] population. Performed By: #### L 502.0250, L500.4100, L500.4050 #### [facility] [address] [place], [address] Cholesterol in HDL [Mass/Vol] 43 mg/dL Normal [facility] Comment on above: Result Comment: Beatrice onal Cholesterol Education Program (NCEP) guidelines: <40 mg/dL: Low HDL-cholesterol (major risk factor for CHD) >= 60 mg/dL: High HDL-cholesterol (negative risk factor for CHD) HDL-cholesterol is affected by a number of factors, e.g. smoking, exercise, hormones, sex and age. Performed By: #### L 502.0250, L500.4100, L500.4050 #### [facility] [address] [place], [address] Cholesterol in LDL [Mass/Vol] 86 mg/dL Normal [facility] Comment on above: Result Comment: Bord uritzo=675-318 mg/dL Higher Ncds=804 mg/dL or greater Friedwald Equation for LDL-C Performed By: #### L 502.0250, L500.4100, L500.4050 #### [facility] [address] [place], [address] Cholesterol in VLDL [Mass/Vol] 45 mg/dL High 5-40 [facility] Comment on above: Performed By: #### L 502.0250, L500.4100, L500.4050 #### [facility] [address] [place], [address] Triglyceride [Mass/Vol] 223 mg/dL High [facility] Comment on above: Result Comment: The drugs N-Acetylcysteine and Metamizole may falsely depress this assay. Normal range: <150 mg/dL Borderline High: 150-199 mg/dL High: 200-499 mg/dL Very High: >500 mg/dL Performed By: #### L 502.0250, L500.4100, L500.4050 #### [facility] [address] [place], [address] Microalb:Creat Ratio,Random URon 06-04-2025 Creatinine [Mass/Vol] 231.00 mg/dL Normal 39.00-259.00 [facility] Comment on above: Performed By: #### L 502.0250, L500.4100, L500.4050 #### [facility] [address] [place], [address] MALB:CREAT UNABLE TO CALCULATE Normal <30 mg/g CRE [place] Comment on above: Performed By: #### L 502.0250, L500.4100, L500.4050 #### [facility] [address] [place], [address] MICROALBUMIN,UR < 12.0 Normal <20 mg/L [facility] Comment on above: Performed By: #### L 502.0250, L500.4100, L500.4050 #### [facility] [address] [place], [address] Microalbumin/creat ratio urO rdered By: Akhil Cox on 06-04-2025 Urine microalbumin/creatinine ratio measurement UNABLE TO CALCULATE mg/g CRE <30 [facility] Potassium measurement (mass/ volume)Ordered By: Akhil Cox on 06-04-2025 Potassium (Unsp spec) [Mass/Vol] 3.9 mmol/L 3.3-5.1 [facility] Random urine creatinine patricio urement (mass/volume)Ordered By: Akhil Cox on 06-04-2025 Creatinine Unsp time (U) [Mass/Vol] 231.00 mg/dL 39.00-259.00 [facility] Screening total cholesterol/ high density lipoprotein (HDL) cholesterol ratioOrdered By: Akhil Cox on 06-04-2025 Cholesterol.total/Erica sterol in HDL [Mass ratio] 4.02 {ratio} [facility] Serum creatinine measurement (mass/volume)Ordered By: Akhil Cox on 06-04-2025 Creatinine [Mass/Vol] 1.53 mg/dL High 0.70-1.20 [place] Serum globulin measurementOr dered By: Akhil Cox on 06-04-2025 Globulin (S) [Mass/Vol] 3.2 g/dL 2.2-4.2 [facility] Serum glucose measurement (m ass/volume)Ordered By: Akhil Cox on 06-04-2025 Glucose [Mass/Vol] 95 mg/dL 70-99 [facility] Serum or plasma alanine beth otransferase (ALT) measurementOrdered By: Akhil Cox on 06-04-2025 ALT [Catalytic activity/Vol] 16 U/L <47 [facility] Serum or plasma albumin patricio urement (mass/volume)Ordered By: Akhil Cox on 06-04-2025 Albumin [Mass/Vol] 4.2 g/dL 3.4-4.8 [facility] Serum or plasma albumin/glob ulin mass ratioOrdered By: Akhil Cox on 06-04-2025 Albumin/Globulin [Mass ratio] 1.3 {ratio} 0.9-2.4 [facility] Serum or plasma alkaline brandon sphatase measurementOrdered By: Akhil Cox on 06-04-2025 ALP [Catalytic activity/Vol] 39 U/L Low 40-129 [facility] Serum or plasma calcium ptaricio urement (mass/volume)Ordered By: Akhil Cox on 06-04-2025 Calcium [Mass/Vol] 9.6 mg/dL 7.6-11.0 [facility] Serum or plasma cholesterol in HDL measurement (mass/volume)Ordered By: Akhil Cox on 06-04-2025 Cholesterol in HDL [Mass/Vol] 43 mg/dL >40 [facility] Comment on above: National Cholesterol Education Program (NCEP) guidelines:<40 mg/dL: Low HDL-cholesterol (major risk factor for CHD)>= 60 mg/dL: High HDL-cholesterol (negative risk factor for CHD)HDL-cholesterol is affected by a number of factors, e.g. smoking, exercise, hormones, sex and age. Serum or plasma cholesterol measurement (mass/volume)Ordered By: Akhil Cox on 06-04-2025 Cholesterol [Mass/Vol] 174 mg/dL <201 [facility] Comment on above: Cholesterol level, D esirable <200 mg/dLBorderline high cholesterol 200-239 mg/dLHigh cholesterol >=240 mg/dLRecommendations of the NCEP Adult Treatment Panel for the following risk-cutoff thresholds for the [place] population. Serum or plasma urea nitroge n measurement (mass/volume)Ordered By: Akhil Cox on 06-04-2025 Urea nitrogen [Mass/Vol] 18 mg/dL 4-19 [facility] Sodium levelOrdered By: Akhil Cox on 06-04-2025 Sodium [Moles/Vol] 139 mmol/L 133-145 [facility] Thoracic Spine 2 Viewson Thoracic Spine 2 Views [facility] Imaging Services [address] [place] [address] Thoracic Spine 2 Views MR#: [id number] Acct: [id number] Name: CHET CONTRERAS Rep #: [id number] : 1960 M 65 From: [place] Adam PCP: Dr. Akhil Cox MD Status: REG CLI Study: Thoracic Spine 2 Views Date of Exam: 06/04/25 Exam# [id number] Ordering Dr: Akhil Cox MD PROCEDURE: THORACIC SPINE 2 VIEWS 06/04/2025 REASON FOR EXAM: BACK ACHE TECHNIQUE: THORACIC SPINE 2 VIEWS COMPARISON: None. RAD/Thoracic Spine 2 Views IMPRESSION: Mild degenerative changes are seen throughout the thoracic spine, but with extensive/exuberant DISH also seen. No fracture or subluxation is evident. Reading Location: [place] [address] CC: Dr. Akhil Cox MD Medical Secretary Teacher: Signed Normal [facility] Total proteinOrdered By: Renata Cox on 06-04-2025 Protein [Mass/Vol] 7.4 g/dL 5.9-8.4 [facility] Triglycerides measurementOrd ered By: Akhil Cox on 06-04-2025 Triglyceride [Mass/Vol] 223 mg/dL High <199 [facility] Comment on above: The drugs N-Acetylcy steine and Metamizole may falsely depress this assay. Normal range: <150 mg/dLBorderline High: 150-199 mg/dLHigh: 200-499 mg/dLVery High: >500 mg/dL Urine albumin measurement wi th detection limit of 20 mg/L or less (mass/volume)Ordered By: Akhil Cox on 06-04-2025 Albumin DL <= 20 mg/L (U) [Mass/Vol] < 12.0 mg/L <20 mg/L [facility] Basic Metabolic Profile (BMP )on 12-06-2024 BUN/CRE 9.8 RATIO Low 10-20 [facility] Comment on above: Performed By: #### L 500.4100, L500.2500 #### [facility] [address] [place], [address] CA,Total 9.4 mg/dL Normal 8.5-10.1 [facility] Comment on above: Performed By: #### L 500.4100, L500.2500 #### [facility] [address] [place], [address] Chloride [Moles/Vol] 105 mmol/L Normal 98-107 [facility] Comment on above: Performed By: #### L 500.4100, L500.2500 #### [facility] [address] [place], [address] CO2 [Moles/Vol] 27.0 mmol/L Normal 21.0-32.0 [facility] Comment on above: Performed By: #### L 500.4100, L500.2500 #### [facility] [address] [place], [address] Creatinine [Mass/Vol] 1.23 mg/dL Normal 0.70-1.30 [place] Comment on above: Result Comment: The validity of the calculated GFR GFRAA in patients over 70 years has not been determined. Clinical correlation is essential. Performed By: #### L 500.4100, L500.2500 #### [facility] [address] [place], [address] EST GFR - AA 76 mL/min Normal >60 [facility] Comment on above: Result Comment: Afri can [place] GFR Calc Performed By: #### L 500.4100, L500.2500 #### [facility] [address] [place], [address] GAP 7 Normal 5-15 [facility] Comment on above: Performed By: #### L 500.4100, L500.2500 #### [facility] [address] [place], [address] GFR/1.73 sq M.predicted among non-blacks MDRD (S/P/Bld) [Vol rate/Area] 63 mL/min/{1.73_m2} Normal >60 [facility] Comment on above: Result Comment: Non- GFR Calc Performed By: #### L 500.4100, L500.2500 #### [facility] [address] [place], [address] Glucose [Mass/Vol] 95 mg/dL Normal 74-106 [facility] Comment on above: Performed By: #### L 500.4100, L500.2500 #### [facility] [address] [place], [address] Potassium [Moles/Vol] 3.6 mmol/L Normal 3.5-5.1 [place] Comment on above: Performed By: #### L 500.4100, L500.2500 #### [facility] [address] [place], [address] Sodium [Moles/Vol] 138 mmol/L Normal 136-145 [facility] Comment on above: Performed By: #### L 500.4100, L500.2500 #### [facility] [address] [place], [address] Urea nitrogen [Mass/Vol] 12 mg/dL Normal 7-18 [facility] Comment on above: Performed By: #### L 500.4100, L500.2500 #### [facility] [address] [place], [address] Lipid Profileon 12-06-2024 Cholesterol [Mass/Vol] 170 mg/dL Normal 200 [facility] Comment on above: Result Comment: <200 mg/dL Desirable 200-240 mg/dL Borderline >240 mg/dL High Risk Performed By: #### L 500.4100, L500.2500 #### [facility] [address] [place], [address] Cholesterol in HDL [Mass/Vol] 36 mg/dL Low [facility] Comment on above: Result Comment: The drugs N-Acetylcysteine and Metamizole may falsely depress this assay. Reference Range HDL <40 mg/dL Low HDL Cholesterol HDL >or= 60 mg/dL High HDL Cholesterol Performed By: #### L 500.4100, L500.2500 #### [facility] [address] [place], [address] Cholesterol in LDL [Mass/Vol] 87 mg/dL Normal 0-130 [facility] Comment on above: Performed By: #### L 500.4100, L500.2500 #### [facility] [address] [place], [address] Cholesterol in VLDL [Mass/Vol] 47 mg/dL High 5-40 [facility] Comment on above: Performed By: #### L 500.4100, L500.2500 #### [facility] [address] [place], [address] Triglyceride [Mass/Vol] 234 mg/dL High [facility] Comment on above: Result Comment: The drugs N-Acetylcysteine and Metamizole may falsely depress this assay. Serum Triglycerides Reference Interval Normal <150 mg/dL Borderline high 150 - 199 mg/dL High 200 - 499 mg/dL Very High > or = 500 mg/dL Performed By: #### L 500.4100, L500.2500 #### [facility] [address] [place], [place], [address] CNOVon 08-31-2024 CNOV Office Visit (UCTR ) PILAR CONTRERAS ([id number]) 1960 M Date Time Provider Department 08/31/24 8:45 AM JONI DANIELLE [facility] During your visit today, we recorded the following information about you: Temperature Pulse Respiration Blood pressure 100.4 degrees 138/minute 30/minute 128/74 Weight 117.5 kg Joni Danielle PA-C 08/31/2024 9:23 AM Signed This note was created using NoteWriter. Subjective Pilar Contreras is a 64 year old male. HPI Patient presents with cough, shortness of breath, fever over the past 4 days. Denies history of asthma. Denies history of smoking or COPD. He has felt short of breath since last night and unable to perform full sentences. No COVID test at home. Denies chest pain. Review of Systems Constitutional: Positive for fatigue and fever. HENT: Positive for congestion and sore throat. Respiratory: Positive for cough, shortness of breath and wheezing. Cardiovascular: Negative. Gastrointestinal: Negative. Genitourinary: Negative. Musculoskeletal: Positive for myalgias. All other systems reviewed and are negative. PAST MEDICAL HISTORY Diagnosis Date HTN (hypertension) Hypertriglyceridemia Current Outpatient Medications Medication Sig Dispense Refill cloNIDine HCl (CATAPRES) 0.1 mg tablet Take 0.1 mg by mouth twice daily. clindamycin (CLEOCIN) 150 mg capsule Take 1 capsule by mouth as needed (1 hour before dental procedures). amLODIPine (NORVASC) 5 mg ORAL tablet Take 1 tablet by mouth once daily. 0 lisinopril-hydrochlor othiazide 20-12.5 mg ORAL per tablet Take 1 tablet by mouth once daily. 0 metoprolol succinate XL, long acting, 25 mg ORAL 24 hr tablet Take 1 tablet by mouth once daily. 30 tablet 0 fenofibrate nanocrystallized (TRICOR) 48 mg ORAL tablet Take 1 tablet by mouth once daily. 0 No current facility-administered medications for this visit. PAST SURGICAL HISTORY Procedure Laterality Date ARTHRP ACETBLR/PROX FEM PROSTC AGRFT/ALGRFT Left ARTHRP ACETBLR/PROX FEM PROSTC AGRFT/ALGRFT Right VASECTOMY 2002 FAMILY HISTORY Problem Relation Age of Onset Cancer Father 60 prostate Breast Cancer Mother 30 Heart Father Social History Tobacco Use Smoking status: Never Smokeless tobacco: Never Substance Use Topics Alcohol use: Yes Alcohol/week: 21.0 - 28.0 standard drinks of alcohol Types: 21 - 28 Cans of Beer (12oz) per week Comment: 3-4/night Drug use: No Objective BP 128/74 Pulse (!) 138 Temp (!) 38 ?C (100.4 ?F) Resp 30 Wt 117.5 kg (259 lb 0.7 oz) SpO2 96% Physical Exam Vitals reviewed. Constitutional: Appearance: Normal appearance. HENT: Head: Normocephalic and atraumatic. Cardiovascular: Rate and Rhythm: Regular rhythm. Tachycardia present. Heart sounds: Normal heart sounds. Pulmonary: Effort: Pulmonary effort is normal. Breath sounds: Wheezing (diffuse inspiratory and expiratory) present. Comments: tachypneic Skin: General: Skin is warm and dry. Neurological: General: No focal deficit present. Mental Status: He is alert. Assessment and Plan ASSESSMENT/PLAN: 1. SOB (shortness of breath) - ICD9: 786.05, ICD10: R06.02 (primary diagnosis) Patient appears visibly short of breath on exam and unable to finish full sentences. He is very wheezy and tight on auscultation. X-ray not available here at [facility] and I feel he needs further care. Recommended evaluation in the emergency department. Patient declined squad transport. He will go to [facility] ED. ER passport sent for report. 2. Tachypnea - ICD9: 786.06, ICD10: R06.82 Joni Danielle PA-C Allergies As of Date: 08/31/2024 Noted Allergy Reaction ERYTHROMYCIN 07/18/2012 2 - Rash PENICILLINS 01/18/2012 4 - Hives Date Reviewed: 08/31/2024 Reviewed by: Gretel Gavin MA - Fully Assessed Reason for Visit: Nasal Congestion [235] Cmt: cough, sob, upset stomach, diarrhea x 3 days Primary Visit Diagnosis:SOB (shortness of breath) [R06.02] Other Visit Diagnosis:Tachypnea [R06.82] Prescriptions as of 08/31/2024 - cloNIDine HCl (CATAPRES) 0.1 mg tablet Take 0.1 mg by mouth twice daily. - clindamycin (CLEOCIN) 150 mg capsule Take 1 capsule by mouth as needed (1 hour before dental procedures). - amLODIPine (NORVASC) 5 mg ORAL tablet Take 1 tablet by mouth once daily. - lisinopril-hydrochlor othiazide 20-12.5 mg ORAL per tablet Take 1 tablet by mouth once daily. - metoprolol succinate XL, long acting, 25 mg ORAL 24 hr tablet Take 1 tablet by mouth once daily. - fenofibrate nanocrystallized (TRICOR) 48 mg ORAL tablet Take 1 tablet by mouth once daily. Meds Comments as of 01/18/2012: Unsure of Mg on meds Problem List As Of Date: 08/31/2024 (None) Encounter Status:Closed by JONI DANIELLE on 08/31/24 Normal [facility] Basophil percentageOrdered B y: Akhil Cox on 12-29-2023 Chloride [Moles/Vol] 109 mmol/L 98-107 [facility] Cholesterol [Mass/Vol] 208 mg/dL <200 [facility] Comment on above: <200 mg/dL Desirable 200-240 mg/dL Borderline >240 mg/dL High Risk Glucose [Mass/Vol] 91 mg/dL 74-106 [facility] Potassium [Moles/Vol] 3.5 mmol/L 3.5-5.1 [place] Sodium [Moles/Vol] 142 mmol/L 136-145 [facility] Triglyceride [Mass/Vol] 310 mg/dL <199 [facility] Comment on above: The drugs N-Acetylcy steine and Metamizole may falsely depress this assay.Serum Triglycerides Reference Interval Normal <150 mg/dL Borderline high 150 - 199 mg/dL High 200 - 499 mg/dL Very High > or = 500 mg/dL Laboratory - Chemistry and C hemistry - challengeOrdered By: Akhil Cox on 12-29-2023 Cholesterol in HDL [Mass/Vol] 31 mg/dL >40 [facility] Comment on above: The drugs N-Acetylcy steine and Metamizole may falsely depress this assay. Reference Range HDL <40 mg/dL Low HDL Cholesterol HDL >or= 60 mg/dL High HDL Cholesterol Cholesterol in LDL [Mass/Vol] 115 mg/dL 0-130 [facility] CO2 [Moles/Vol] 26.0 mmol/L 21.0-32.0 [facility] Urea nitrogen/Creatinine [Mass ratio] 11.0 mg/mg 10-20 [facility] No Panel InformationOrdered By: Akhil Cox on 12-29-2023 Estimated GFR (MDRD) Amer 74 mL/min >60 [facility] Comment on above: GFR Calc Estimated GFR (MDRD) Non-Af Amer 61 mL/min >60 [facility] Comment on above: Non- GFR Calc Prostate Specific Antigen Screen 2.08 ng/mL 0.00-4.00 [facility] Comment on above: This test was perfor med using the TPSA assay method for theDimension chemistry system. Values obtained with differentassay methods cannot be used interchangably.When changing PSA assays in the course of monitoring apatient, additional sequential testing should be carriedout to confirm baseline values. VLDL Cholesterol 62 mg/dL 5-40 [facility] Serum or plasma calcium patricio urement (mass/volume)Ordered By: Akhil Cox on 12-29-2023 Calcium [Mass/Vol] 9.6 mg/dL 8.5-10.1 [facility] Serum or plasma creatinine m easurement (mass/volume)Ordered By: Akhil Cox on 12-29-2023 Creatinine [Mass/Vol] 1.27 mg/dL 0.70-1.30 [place] Comment on above: The validity of the calculated GFR & GFRAA in patients over 70 years has not been determined. Clinical correlation is essential. Serum or plasma urea nitroge n measurement (mass/volume)Ordered By: Akhil Cox on 12-29-2023 Urea nitrogen [Mass/Vol] 14 mg/dL 7 [facility] Thin prep Papanicolaou smear with manual screeningOrdered By: Akhil Cox on 12-29-2023 Thin prep Papanicolaou smear with manual screening 03-12 [facility] Vital Signs Date Time Vital Sign Value Performing Clinician Tabithai bebeto 06-16-2025 18:41-0400 Body temperature 99 [degF] Brandigurpreet Whiteheadisler-Erik DOUBLE END SEWER.LEAD SOFTWARE DEVELOPER Work Phone: [facility] 06-16-2025 18:41-0400 Body weight 113 kg Brandigurpreet Alan-Erik DOUBLE END SEWER.LEAD SOFTWARE DEVELOPER Work Phone: [facility] 06-16-2025 18:41-0400 Diastolic blood pressure 72 mm[Hg] Brandi Praisler-Wood DOUBLE END SEWER.LEAD SOFTWARE DEVELOPER Work Phone: [facility] 06-16-2025 18:41-0400 Heart rate 105 /min Brandi Praisler-Wood DOUBLE END SEWER.LEAD SOFTWARE DEVELOPER Work Phone: [facility] 06-16-2025 18:41-0400 Respiratory rate 16 /min Brandi Praisler-Wood DOUBLE END SEWER.LEAD SOFTWARE DEVELOPER Work Phone: [facility] 06-16-2025 18:41-0400 SaO2% (BldA) [Mass fraction] 98 % Brandi Praisler-Erik DOUBLE END SEWER.LEAD SOFTWARE DEVELOPER Work Phone: [facility] 06-16-2025 18:41-0400 Systolic blood pressure 118 mm[Hg] Brandi Praisler-Wood DOUBLE END SEWER.LEAD SOFTWARE DEVELOPER Work Phone: [facility] 08-31-2024 08:38-0500 Body temperature 100.4 [degF] Joni Athy PA-C Work Phone: [facility] 08-31-2024 08:38-0500 Body weight 117.5 kg Joni Athy PA-C Work Phone: [facility] 08-31-2024 08:38-0500 Diastolic blood pressure 74 mm[Hg] Joni Athy PA-C Work Phone: [facility] 08-31-2024 08:38-0500 Heart rate 138 /min Joni Athy PA-C Work Phone: [facility] 08-31-2024 08:38-0500 Respiratory rate 30 /min Joni Athy PA-C Work Phone: [facility] 08-31-2024 08:38-0500 SaO2% (BldA) [Mass fraction] 96 % Joni Athy PA-C Work Phone: [facility] 08-31-2024 08:38-0500 Systolic blood pressure 128 mm[Hg] Joni Athy PA-C Work Phone: [facility] Encounters Encounter Date Encounter Type Care Provider Facility Start: 09-16-2025 ambulatory Afia Lebron Facility:[facility] Start: 09-04-2025 End: 09-04-2025 ambulatory Akhil Cox [place] [place] Start: 07-20-2025 End: 07-20-2025 ambulatory AKHIL COX Facility:[facility] Start: 06-16-2025 End: 06-16-2025 Subsequent hospital visit by physician [facility] [place] Work Phone: Radiology Comment on above: Acute cough [R05.1] Start: 06-16-2025 End: 06-16-2025 Patient encounter procedure Brandi Birmingham APRN.CNP Work Phone: [facility] [place] Comment on above: Acute cough (Primary Dx); Viral URI with cough; Acute conjunctivitis of both eyes, unspecified acute conjunctivitis type Start: 06-16-2025 End: 06-16-2025 ambulatory BRANDI BIRMINGHAM Facility:[facility] Start: 06-04-2025 End: 06-04-[address] Akhil Cox MD Work Phone: -[facility] [place] Start: 06-04-2025 End: 06-04-[address] Akhil Cox MD -[facility] [place] Work Phone: Start: 06-04-2025 End: 06-04-2025 ambulatory Akhil Cox Facility:[facility] Start: 12-06-2024 End: 12-06-2024 ambulatory Akhil Cox Facility:[facility] Start: 08-31-2024 End: 08-31-2024 ambulatory AKHIL COX Facility:[facility] Start: 08-31-2024 End: 08-31-2024 Patient encounter procedure Joni Danielle PA-C Work Phone: [facility] Comment on above: SOB (shortness of br eath) (Primary Dx); Tachypnea Start: 12-29-2023 End: 12-29-2023 ambulatory [facility] Work Phone: Start: 12-29-2023 End: 12-29-2023 Patient encounter procedure [facility] Work Phone: Procedures Date Procedure Procedure Detail Performing Clinician Start: 06-16-2025 Radiologic exam ches t 2 views Brandi Birmingham DOUBLE END SEWER.LEAD SOFTWARE DEVELOPER Work Phone: Start: 06-04-[address] Akhil Cox MD Work Phone: Plan of Treatment Date Care Activity Detail Author Start: 2036 RSV Vaccine (1 - 1-d ose 75+ series) RSV Vaccine (1 - 1-dose 75+ series) [facility] Start: 07-07-2030 Urine microalbumin profile DTaP,Tdap,Td Vaccine (2 - Td or Tdap) [facility] Start: 06-29-2025 Influenza vaccination Influenza Vacc ine (#1) [facility] Start: 06-29-2024 Covid-19 Vaccine ( season) Covid-19 Vaccine ( season) [facility] Start: 06-29-2024 Influenza vaccination Influenza Vacc ine (#1) [facility] Start: 2016 Prostate specific an tigen measurement Prostate Cancer Screening Discussion [facility] Start: 2011 Pneumococcal Vaccine : 50+ (1 of 1 - PCV) Pneumococcal Vaccine: 50+ (1 of 1 - PCV) [facility] Start: 2011 Shingrix Vaccine (1 of 2) Shingrix V accine (1 of 2) [facility] Start: 2006 Diabetes Screening Diabetes Screenin g [facility] Start: 2006 Prostate specific an tigen measurement Prostate Cancer Screening Discussion [facility] Start: 2006 Screening for malign ant neoplasm of colon [facility] Start: 1996 Lipid panel Lipid Screening [facility] Start: 1979 Anxiety Screening Anxiety Screening [facility] Start: 1979 Depression Screening Depression Scre ening [facility] Start: 1979 Hepatitis C screening Hepatitis C Sc reening [facility] Start: 1979 HIV screening HIV Screening [facility] Immunizations Immunization Date Immunization Notes Care Provider Fa nicholas 09-10-2019 influenza virus vacc ine, unspecified formulation Joni Danielle PA-C Work Phone: [facility] Payers Date Payer Category Payer Self-pay [id number] 2021 Private Health Insurance [id number] 2021 Unknown [id number] 2007 Private Health Insurance [id number] [id number] Unknown [id number] Unknown [id number] Unknown [id number] [id number] [id number] Unknown [id number] [id number] [id number] Unknown [id number] [id number] Social History Date Type Detail Facility Start: 11-07-2016 Tobacco smoking stat us NYIS Unknown if ever smoked [facility] Start: 1960 Sex Assigned At Male [facility] Start: 07-18-2012 End: 08-31-2024 Tobacco smoking status NHIS Never smoked tobacco [facility] Start: 07-18-2012 Tobacco use and exposure Smokeless tobacco non-user [facility] Start: 06-14-2022 End: 06-16-2025 Alcoholic beverage intake Current drinker of alcohol (finding) [facility] Start: 01-15-2019 End: 10-06-2020 History of Social function [facility] Start: 01-15-2019 End: 10-06-2020 Tobacco use panel [facility] Start: 09-29-2012 National Score (1-10 0), lower number is lower risk Not on file [facility] Start: 1960 Sex assigned at Not on file [facility] Clinical Notes 08-31-2024 to 07-20-2025 Patient InstructionsPralon-Brandi Valencia APRN.LEAD SOFTWARE DEVELOPER - 06/17/2025 8:19 AM Charlette Meza Tech - 06/16/2025 7:00 PM Joni Medeiros PA-C - 08/31/2024 9:20 AM EST Note Date & Type Note Facility 07-20-2025 Note HNO ID: [id number] Author: KELLIE WHITE RT(R) Service: ? Author Type: Immigration Patrol Inspector Type: Progress Notes Filed: 07/20/2025 12:23 Note Text: Radiology Service Progress Note PATIENT NAME: Pilar Contreras DATE OF SERVICE: July 20, 2025 TIME: 11:55 AM PATIENT IDENTITY VERIFICATION COMPLETED USING TWO (2) IDENTIFIERS: Name and Date of confirmed by patient verbally. FALL SCREENING: Has the patient had 2 falls in the last year or 1 fall with injury or currently using an Ambulatory Assistive Device (Walker, Cane, Wheelchair, Crutches, etc.)? No PATIENT GENDER DATA: Assigned male at PATIENT RELEVANT IMPLANT DATA REVIEWED: Yes PATIENT PRESENTS WITH AN IMPLANTABLE OR ATTACHED CERTIFIED PUBLIC ACCOUNTANT: No RADIOLOGY DEPARTMENT: General X-ray: Exam(s) Completed: Spine X-Ray(s): Thoracic, Lumbar AP / LAT / L5-S1 , and Sacrum/Coccyx PERIPHERAL IV DATA: Not applicable SIGNED BY: RT Luisa(R) July 20, 2025 11:55 AM [facility] 07-20-2025 Note HNO ID: [id number] Author: HEENA HARRIS APRN.LEAD SOFTWARE DEVELOPER Service: ? Author Type: Nurse Practitioner Type: Progress Notes Filed: 07/20/2025 14:19 Note Text: [facility] Avani Contreras is a 65 year old male presenting with 5/10 lower back pain after a fall at home.happened a week ago has improved somewhat over the week but still painful. Patient denies hitting head during the fall. Associated symptoms include mild numbness down both legs to knee area, pain that radiates to the left and right. Reports taking tylenol arthritis for multiple doses which has not helped to alleviate his symptoms. Pertinent negatives include no fever, chills, loss of bowels or bladder, no shortness of breathe, or chest pain. Reports history of sciatic before his hips were replaced. Review of Systems Constitutional: Negative for chills, fatigue and fever. Respiratory: Negative for cough, chest tightness and shortness of breath. Cardiovascular: Negative for chest pain and leg swelling. Gastrointestinal: Negative for abdominal distention, abdominal pain, constipation, diarrhea, nausea and vomiting. Musculoskeletal: Positive for back pain. Negative for arthralgias, joint swelling and neck pain. Skin: Negative for color change and rash. Neurological: Positive for numbness (B/L legs). Negative for dizziness, syncope, weakness, light-headedness and headaches. Objective BP 100/58 Pulse 75 Temp 36.6 ?C (97.8 ?F) Resp 20 Wt 111.6 kg (246 lb 0.5 oz) SpO2 97% Physical Exam Vitals and nursing note reviewed. Constitutional: General: He is awake. Cardiovascular: Rate and Rhythm: Normal rate and regular rhythm. Heart sounds: Normal heart sounds, S1 normal and S2 normal. No murmur heard. Pulmonary: Effort: Pulmonary effort is normal. Breath sounds: Normal breath sounds. No decreased breath sounds or wheezing. Musculoskeletal: Cervical back: Normal, full passive range of motion without pain and normal range of motion. No swelling, edema, deformity, erythema, signs of trauma, lacerations, rigidity, spasms, tenderness or bony tenderness. No pain with movement. Normal range of motion. Thoracic back: Tenderness present. No swelling, edema, deformity, signs of trauma or spasms. Normal range of motion. Lumbar back: Tenderness and bony tenderness present. No swelling, edema, deformity, signs of trauma or spasms. Decreased range of motion. Negative right straight leg raise test and negative left straight leg raise test. No scoliosis. Back: Right hip: Normal. No deformity, tenderness or bony tenderness. Normal range of motion. Left hip: Normal. No deformity, tenderness or bony tenderness. Normal range of motion. Right upper leg: Normal. No swelling, edema or tenderness. Left upper leg: Normal. No swelling, edema or tenderness. Comments: No bulging disc, ecchymosis, bruising or erythema on spine. strength and resistance 5/5 all extremities. Full Forward flexion without resistance. Full bilateral Lateral flexion Gait steady. Good standing balance. - frequent repositioning while in sitting position. Skin: General: Skin is warm. Capillary Refill: Capillary refill takes less than 2 seconds. Neurological: Mental Status: He is alert and oriented to person, place, and time. Psychiatric: Mood and Affect: Mood normal. {ASSESSMENT/PLAN: 1. Acute thoracic back pain, unspecified back pain laterality - ICD9: 724.1, ICD10: M54.6 Mechanical low back pain - Bedrest for 2-3 days - Ice for localized tenderness - Warm moist heat for 20 min three times a day - Muscle relaxant- see orders - Patient given instructions use of medications as ordered, intermittent rest, improved posture, proper lifting techniques, intermittent use of heat, and avoiding sleeping on a heating pad - Follow up in 5 days or sooner if symptoms persist or worsen - XR LUMBAR GENERAL 3V AP/LAT/L5-S1 - XR SACRUM/COCCYX 3V AP/LAT - XR THORACIC LIMITED 2V AP/LAT Impression for all 3 x-rays shows: IMPRESSION: No acute fracture. 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 - PREDNISONE 10 MG TABLET - Taper - CYCLOBENZAPRINE 10 MG TABLET - Educated to avoid lifting heavy objects, operating heavy machinery, and driving while taking this medication. Educated patient to take this medication at night because it can cause drowsiness. Disposition The patient was discharged. OTC Medications were advised: Ibuprofen or Acetaminophen Procedures Discussed medication dosage, usage, goals of therapy, and side effects. Return to [facility], call primary care provider, or go to the emergency department for problems, worsening, increased or new symptoms, etc. Red flag symptoms discussed with the patient and when to go to ER. Patient verbalized understanding to plan of care. [place] CULINARY INSTRUCTOR student TEACHING PROVIDER (Physician/PA/GERMAIN) NOTE OF PERSONAL INVOLVEMENT IN CARE: I (more content not included)... [facility] 06-17-2025 Instructions Brandi Birmingham APRN.LEAD SOFTWARE DEVELOPER - 06/17/2025 8:22 AM EDT 1. Acute cough (R05.1) 2. Viral URI with cough (J06.9) - Productive cough with yellow-green sputum, congestion, sore throat (5/10 severity), intermittent chills, and fatigue; history of pneumonia. - Chest X-ray performed to rule out pneumonia; results normal, no acute radiographic abnormality. - Start Tessalon Perles as prescribed for cough. - Advised to use Tessalon Perles as directed and follow up with primary care provider if symptoms do not improve. 3. Acute conjunctivitis of both eyes, unspecified acute conjunctivitis type (H10.33) - Bilateral eye irritation with matting noted on waking. - Start Polytrim ophthalmic solution as prescribed. - Advised to use Polytrim as directed and follow up with primary care provider if symptoms do not improve. - Fill the prescription for Tessalon Perles at your pharmacy and take it as directed to help relieve your cough. - Fill the prescription for Polytrim ophthalmic solution at your pharmacy and instill it in both eyes as directed for your eye irritation. - Chest x-ray results showed no acute abnormalities and no evidence of pneumonia. - Follow up with your primary care provider if your symptoms do not improve. documented in this encounter [facility] 06-17-2025 History of Present illness Narrative [facility] SLIME Contreras is a 65 year old male. Patient presents with: Cough: Cough, ST, congestion and eye irritation x 2-3 days Cough Upper Respiratory Symptoms: - Cough productive of yellow-green sputum. - Congestion and sore throat, with pain rated 5/10. - Bilateral eye irritation with matting upon waking. - Intermittent chills; has not checked temperature at home. - Increased fatigue. - Took a previously prescribed yellow capsule for cough from a past pneumonia episode. Review of Systems Respiratory: Positive for cough. Constitutional: (+) chills, (+) fatigue, (+) diaphoresis Eyes: (+) bilateral eye irritation, (+) bilateral eye discharge Ears/Nose/Mouth/Throat: (+) nasal congestion, (+) sore throat Respiratory: (+) productive cough Objective BP 118/72 Pulse 105 Temp 37.2 C (99 F) (Tympanic) Resp 16 Wt 113 kg (249 lb 1.9 oz) SpO2 98% PAST MEDICAL HISTORY Diagnosis Date HTN (hypertension) Hypertriglyceridemia PAST SURGICAL HISTORY Procedure Laterality Date ARTHRP ACETBLR/PROX FEM PROSTC AGRFT/ALGRFT Left ARTHRP ACETBLR/PROX FEM PROSTC AGRFT/ALGRFT Right VASECTOMY 2002 ALLERGIES Erythromycin and Penicillins MEDICATIONS cloNIDine HCl (CATAPRES) 0.1 mg tablet Take 0.1 mg by mouth twice daily. clindamycin (CLEOCIN) 150 mg capsule Take 1 capsule by mouth as needed (1 hour before dental procedures). amLODIPine (NORVASC) 5 mg ORAL tablet Take 1 tablet by mouth once daily. lisinopril-hydrochlorothiazide 20-12.5 mg ORAL per tablet Take 1 tablet by mouth once daily. metoprolol succinate XL, long acting, 25 mg ORAL 24 hr tablet Take 1 tablet by mouth once daily. fenofibrate nanocrystallized (TRICOR) 48 mg ORAL tablet Take 1 tablet by mouth once daily. benzonatate (TESSALON PERLE) 100 mg capsule Take 2 capsules by mouth three times a day as needed. polymyxin B-trimethoprim (POLYTRIM) 10,000 unit- 1 mg/mL ophthalmic solution Use 1 drop in both eyes four times daily for 7 days. FAMILY HISTORY Problem Relation Age of Onset Cancer Father 60 prostate Breast Cancer Mother 30 Heart Father SOCIAL HISTORY[1] Physical Exam Vitals and nursing note reviewed. Constitutional: General: He is not in acute distress. Appearance: Normal appearance. He is not ill-appearing. HENT: Right Ear: Tympanic membrane, ear canal and external ear normal. Left Ear: Tympanic membrane, ear canal and external ear normal. Nose: Nose normal. Mouth/Throat: Mouth: Mucous membranes are moist. Pharynx: Oropharynx is clear. Uvula midline. Posterior oropharyngeal erythema (slight) present. No pharyngeal swelling, oropharyngeal exudate, uvula swelling or postnasal drip. Tonsils: Tonsillar abscess present. No tonsillar exudate. Eyes: General: Lids are normal. Vision grossly intact. Gaze aligned appropriately. No allergic shiner. Right eye: No discharge or hordeolum. Left eye: No discharge or hordeolum. Conjunctiva/sclera: Right eye: Right conjunctiva is injected. No chemosis, exudate or hemorrhage. Left eye: Left conjunctiva is injected. No chemosis, exudate or hemorrhage. Cardiovascular: Rate and Rhythm: Normal rate and regular rhythm. Heart sounds: Normal heart sounds. Pulmonary: Effort: Pulmonary effort is normal. No respiratory distress. Breath sounds: Normal breath sounds. No wheezing or rales. Skin: General: Skin is warm and dry. Findings: No erythema or rash. Neurological: Mental Status: He is alert. { 1. Acute cough (R05.1) 2. Viral URI with cough (J06.9) - Productive cough with yellow-green sputum, congestion, sore throat (5/10 severity), intermittent chills, and fatigue; history of pneumonia. - Chest X-ray performed to rule out pneumonia; results normal, no acute radiographic abnormality. - Start Tessalon Perles as prescribed for cough. - Advised to use Tessalon Perles as directed and follow up with primary care provider if symptoms do not improve. 3. Acute conjunctivitis of both eyes, unspecified acute conjunctivitis type (H10.33) - Bilateral eye irritation with matting noted on waking. - Start Polytrim ophthalmic solution as prescribed. - Advised to use Polytrim as directed and follow up with primary care provider if symptoms do not improve. - Follow-up with your PCP in 3-5 days if symptoms have not improved or sooner if symptoms worsen - Discussed red flags and need for immediate medical evaluation if any occur. - Discussed supportive care treatment with fluids, rest and analgesia. - Discussed expected course of illness Brandi Birmingham APRN.LEAD SOFTWARE DEVELOPER and Recording using [employer] software for draft documentation of the visit was discussed with the patient/authorized pest control service representative; all questions welcomed and answered. Patient/authorized pest control service representative agreed to proceed MDM Procedures [1] Social History Tobacco Use Smoking status: Never Smokeless tobacco: Never Substance Use Topics Alcohol use: Yes Alcohol/week: 21.0 - 28.0 standard drinks of alcohol Types: 21 - 28 Cans of Beer (12oz) per week Comment: 3-4/night Drug use: No documented in this encounter [facility] 06-17-2025 Note HNO ID: [id number] Author: BRANDI BIRMINGHAM APRN.LEAD SOFTWARE DEVELOPER Service: ? Author Type: Nurse Practitioner Type: Progress Notes Filed: 06/17/2025 08:22 Note Text: [facility] SLIME Contreras is a 65 year old male. Patient presents with: Cough: Cough, ST, congestion and eye irritation x 2-3 days Cough Upper Respiratory Symptoms: - Cough productive of yellow-green sputum. - Congestion and sore throat, with pain rated 5/10. - Bilateral eye irritation with matting upon waking. - Intermittent chills; has not checked temperature at home. - Increased fatigue. - Took a previously prescribed yellow capsule for cough from a past pneumonia episode. Review of Systems Respiratory: Positive for cough. Constitutional: (+) chills, (+) fatigue, (+) diaphoresis Eyes: (+) bilateral eye irritation, (+) bilateral eye discharge Ears/Nose/Mouth/Throat: (+) nasal congestion, (+) sore throat Respiratory: (+) productive cough Objective BP 118/72 Pulse 105 Temp 37.2 ?C (99 ?F) (Tympanic) Resp 16 Wt 113 kg (249 lb 1.9 oz) SpO2 98% PAST MEDICAL HISTORY Diagnosis Date HTN (hypertension) Hypertriglyceridemia PAST SURGICAL HISTORY Procedure Laterality Date ARTHRP ACETBLR/PROX FEM PROSTC AGRFT/ALGRFT Left ARTHRP ACETBLR/PROX FEM PROSTC AGRFT/ALGRFT Right VASECTOMY 2002 ALLERGIES Erythromycin and Penicillins MEDICATIONS cloNIDine HCl (CATAPRES) 0.1 mg tablet Take 0.1 mg by mouth twice daily. clindamycin (CLEOCIN) 150 mg capsule Take 1 capsule by mouth as needed (1 hour before dental procedures). amLODIPine (NORVASC) 5 mg ORAL tablet Take 1 tablet by mouth once daily. lisinopril-hydrochlorothiazide 20-12.5 mg ORAL per tablet Take 1 tablet by mouth once daily. metoprolol succinate XL, long acting, 25 mg ORAL 24 hr tablet Take 1 tablet by mouth once daily. fenofibrate nanocrystallized (TRICOR) 48 mg ORAL tablet Take 1 tablet by mouth once daily. benzonatate (TESSALON PERLE) 100 mg capsule Take 2 capsules by mouth three times a day as needed. polymyxin B-trimethoprim (POLYTRIM) 10,000 unit- 1 mg/mL ophthalmic solution Use 1 drop in both eyes four times daily for 7 days. FAMILY HISTORY Problem Relation Age of Onset Cancer Father 60 prostate Breast Cancer Mother 30 Heart Father SOCIAL HISTORY[1] Physical Exam Vitals and nursing note reviewed. Constitutional: General: He is not in acute distress. Appearance: Normal appearance. He is not ill-appearing. HENT: Right Ear: Tympanic membrane, ear canal and external ear normal. Left Ear: Tympanic membrane, ear canal and external ear normal. Nose: Nose normal. Mouth/Throat: Mouth: Mucous membranes are moist. Pharynx: Oropharynx is clear. Uvula midline. Posterior oropharyngeal erythema (slight) present. No pharyngeal swelling, oropharyngeal exudate, uvula swelling or postnasal drip. Tonsils: Tonsillar abscess present. No tonsillar exudate. Eyes: General: Lids are normal. Vision grossly intact. Gaze aligned appropriately. No allergic shiner. Right eye: No discharge or hordeolum. Left eye: No discharge or hordeolum. Conjunctiva/sclera: Right eye: Right conjunctiva is injected. No chemosis, exudate or hemorrhage. Left eye: Left conjunctiva is injected. No chemosis, exudate or hemorrhage. Cardiovascular: Rate and Rhythm: Normal rate and regular rhythm. Heart sounds: Normal heart sounds. Pulmonary: Effort: Pulmonary effort is normal. No respiratory distress. Breath sounds: Normal breath sounds. No wheezing or rales. Skin: General: Skin is warm and dry. Findings: No erythema or rash. Neurological: Mental Status: He is alert. { 1. Acute cough (R05.1) 2. Viral URI with cough (J06.9) - Productive cough with yellow-green sputum, congestion, sore throat (5/10 severity), intermittent chills, and fatigue; history of pneumonia. - Chest X-ray performed to rule out pneumonia; results normal, no acute radiographic abnormality. - Start Tessalon Perles as prescribed for cough. - Advised to use Tessalon Perles as directed and follow up with primary care provider if symptoms do not improve. 3. Acute conjunctivitis of both eyes, unspecified acute conjunctivitis type (H10.33) - Bilateral eye irritation with matting noted on waking. - Start Polytrim ophthalmic solution as prescribed. - Advised to use Polytrim as directed and follow up with primary care provider if symptoms do not improve. - Follow-up with your PCP in 3-5 days if symptoms have not improved or sooner if symptoms worsen - Discussed red flags and need for immediate medical evaluation if any occur. - Discussed supportive care treatment with fluids, rest and analgesia. - Discussed expected course of illness Brandi Birmingham APRN.LEAD SOFTWARE DEVELOPER and Recording using [employer] software for draft documentation of the visit was discussed with the patient/authorized pest control service representative; all questions welcomed and answered. Sharon (more content not included)... [facility] 06-16-2025 History of Present illness Narrative Radiology Service Progress Note PATIENT NAME: Pilar Contreras DATE OF SERVICE: June 16, 2025 TIME: 7:03 PM PATIENT IDENTITY VERIFICATION COMPLETED USING TWO (2) IDENTIFIERS: Name and Date of confirmed by patient verbally. FALL SCREENING: Has the patient had 2 falls in the last year or 1 fall with injury or currently using an Ambulatory Assistive Device (Walker, Cane, Wheelchair, Crutches, etc.)? No PATIENT GENDER DATA: Assigned male at PATIENT RELEVANT IMPLANT DATA REVIEWED: Yes PATIENT PRESENTS WITH AN IMPLANTABLE OR ATTACHED CERTIFIED PUBLIC ACCOUNTANT: No RADIOLOGY DEPARTMENT: General X-ray: Exam(s) Completed: Chest X-Ray PERIPHERAL IV DATA: Not applicable SIGNED BY: Harry Jackson June 16, 2025 7:03 PM documented in this encounter [facility] 06-16-2025 Note HNO ID: [id number] Author: CHARLETTE FINE Tech Service: ? Author Type: Immigration Patrol Inspector Type: Progress Notes Filed: 06/16/2025 19:03 Note Text: Radiology Service Progress Note PATIENT NAME: Pilar Contreras DATE OF SERVICE: June 16, 2025 TIME: 7:03 PM PATIENT IDENTITY VERIFICATION COMPLETED USING TWO (2) IDENTIFIERS: Name and Date of confirmed by patient verbally. FALL SCREENING: Has the patient had 2 falls in the last year or 1 fall with injury or currently using an Ambulatory Assistive Device (Walker, Cane, Wheelchair, Crutches, etc.)? No PATIENT GENDER DATA: Assigned male at PATIENT RELEVANT IMPLANT DATA REVIEWED: Yes PATIENT PRESENTS WITH AN IMPLANTABLE OR ATTACHED CERTIFIED PUBLIC ACCOUNTANT: No RADIOLOGY DEPARTMENT: General X-ray: Exam(s) Completed: Chest X-Ray PERIPHERAL IV DATA: Not applicable SIGNED BY: Harry Jackson June 16, 2025 7:03 PM [facility] 06-04-2025 Radiology Diagnostic study note [facility] Imaging Services [address] [place] [address] [id number] Thoracic Spine 2 Views MR#: [id number] Acct: [id number] Name: CHET CONTRERAS Rep #: [id number] : 1960 M 65 From: Randy Ayon MD PCP: Dr. Akhil Cox MD Status: REG C MONA Study:Thoracic Spine 2 Views Date of Exam: 06/04/25 Exam# [id number] Ordering Dr: Akhil Cox MD PROCEDURE: THORACIC SPINE 2 VIEWS 06/04/2025 REASON FOR EXAM: BACK ACHE TECHNIQUE: THORACIC SPINE 2 VIEWS COMPARISON: None. RAD/Thoracic Spine 2 Views IMPRESSION: Mild degenerative changes are seen throughout the thoracic spine, but with extensive/exuberant DISH also seen. No fracture or subluxation is evident. Reading Location: [place] [id number] CC: Dr. Akhil Cox MD ~ Medical Secretary Teacher: Signed [facility] 08-31-2024 Note HNO ID: [id number] Author: JONI DANIELLE PA-C Service: ? Author Type: Physician Diesel Powerplant Supervisor Type: Progress Notes Filed: 08/31/2024 09:23 Note Text: This note was created using [employer]. Subjective Pilar Contreras is a 64 year old male. HPI Patient presents with cough, shortness of breath, fever over the past 4 days. Denies history of asthma. Denies history of smoking or COPD. He has felt short of breath since last night and unable to perform full sentences. No COVID test at home. Denies chest pain. Review of Systems Constitutional: Positive for fatigue and fever. HENT: Positive for congestion and sore throat. Respiratory: Positive for cough, shortness of breath and wheezing. Cardiovascular: Negative. Gastrointestinal: Negative. Genitourinary: Negative. Musculoskeletal: Positive for myalgias. All other systems reviewed and are negative. PAST MEDICAL HISTORY Diagnosis Date HTN (hypertension) Hypertriglyceridemia Current Outpatient Medications Medication Sig Dispense Refill cloNIDine HCl (CATAPRES) 0.1 mg tablet Take 0.1 mg by mouth twice daily. clindamycin (CLEOCIN) 150 mg capsule Take 1 capsule by mouth as needed (1 hour before dental procedures). amLODIPine (NORVASC) 5 mg ORAL tablet Take 1 tablet by mouth once daily. 0 lisinopril-hydrochlorothiazide 20-12.5 mg ORAL per tablet Take 1 tablet by mouth once daily. 0 metoprolol succinate XL, long acting, 25 mg ORAL 24 hr tablet Take 1 tablet by mouth once daily. 30 tablet 0 fenofibrate nanocrystallized (TRICOR) 48 mg ORAL tablet Take 1 tablet by mouth once daily. 0 No current facility-administered medications for this visit. PAST SURGICAL HISTORY Procedure Laterality Date ARTHRP ACETBLR/PROX FEM PROSTC AGRFT/ALGRFT Left ARTHRP ACETBLR/PROX FEM PROSTC AGRFT/ALGRFT Right VASECTOMY 2002 FAMILY HISTORY Problem Relation Age of Onset Cancer Father 60 prostate Breast Cancer Mother 30 Heart Father Social History Tobacco Use Smoking status: Never Smokeless tobacco: Never Substance Use Topics Alcohol use: Yes Alcohol/week: 21.0 - 28.0 standard drinks of alcohol Types: 21 - 28 Cans of Beer (12oz) per week Comment: 3-4/night Drug use: No Objective BP 128/74 Pulse (!) 138 Temp (!) 38 ?C (100.4 ?F) Resp 30 Wt 117.5 kg (259 lb 0.7 oz) SpO2 96% Physical Exam Vitals reviewed. Constitutional: Appearance: Normal appearance. HENT: Head: Normocephalic and atraumatic. Cardiovascular: Rate and Rhythm: Regular rhythm. Tachycardia present. Heart sounds: Normal heart sounds. Pulmonary: Effort: Pulmonary effort is normal. Breath sounds: Wheezing (diffuse inspiratory and expiratory) present. Comments: tachypneic Skin: General: Skin is warm and dry. Neurological: General: No focal deficit present. Mental Status: He is alert. Assessment and Plan ASSESSMENT/PLAN: 1. SOB (shortness of breath) - ICD9: 786.05, ICD10: R06.02 (primary diagnosis) Patient appears visibly short of breath on exam and unable to finish full sentences. He is very wheezy and tight on auscultation. X-ray not available here at [facility] and I feel he needs further care. Recommended evaluation in the emergency department. Patient declined squad transport. He will go to [facility] ED. ER passport sent for report. 2. Tachypnea - ICD9: 786.06, ICD10: R06.82 Joni Danielle PA-C [facility] 08-31-2024 History of Present illness Narrative This note was created using [employer]. Subjective Pilar Contreras is a 64 year old male. HPI Patient presents with cough, shortness of breath, fever over the past 4 days. Denies history of asthma. Denies history of smoking or COPD. He has felt short of breath since last night and unable to perform full sentences. No COVID test at home. Denies chest pain. Review of Systems Constitutional: Positive for fatigue and fever. HENT: Positive for congestion and sore throat. Respiratory: Positive for cough, shortness of breath and wheezing. Cardiovascular: Negative. Gastrointestinal: Negative. Genitourinary: Negative. Musculoskeletal: Positive for myalgias. All other systems reviewed and are negative. PAST MEDICAL HISTORY Diagnosis Date HTN (hypertension) Hypertriglyceridemia Current Outpatient Medications Medication Sig Dispense Refill cloNIDine HCl (CATAPRES) 0.1 mg tablet Take 0.1 mg by mouth twice daily. clindamycin (CLEOCIN) 150 mg capsule Take 1 capsule by mouth as needed (1 hour before dental procedures). amLODIPine (NORVASC) 5 mg ORAL tablet Take 1 tablet by mouth once daily. 0 lisinopril-hydrochlorothiazide 20-12.5 mg ORAL per tablet Take 1 tablet by mouth once daily. 0 metoprolol succinate XL, long acting, 25 mg ORAL 24 hr tablet Take 1 tablet by mouth once daily. 30 tablet 0 fenofibrate nanocrystallized (TRICOR) 48 mg ORAL tablet Take 1 tablet by mouth once daily. 0 No current facility-administered medications for this visit. PAST SURGICAL HISTORY Procedure Laterality Date ARTHRP ACETBLR/PROX FEM PROSTC AGRFT/ALGRFT Left ARTHRP ACETBLR/PROX FEM PROSTC AGRFT/ALGRFT Right VASECTOMY 2001 FAMILY HISTORY Problem Relation Age of Onset Cancer Father 60 prostate Breast Cancer Mother 30 Heart Father Social History Tobacco Use Smoking status: Never Smokeless tobacco: Never Substance Use Topics Alcohol use: Yes Alcohol/week: 21.0 - 28.0 standard drinks of alcohol Types: 21 - 28 Cans of Beer (12oz) per week Comment: 3-4/night Drug use: No Objective BP 128/74 Pulse (!) 138 Temp (!) 38 C (100.4 F) Resp 30 Wt 117.5 kg (259 lb 0.7 oz) SpO2 96% Physical Exam Vitals reviewed. Constitutional: Appearance: Normal appearance. HENT: Head: Normocephalic and atraumatic. Cardiovascular: Rate and Rhythm: Regular rhythm. Tachycardia present. Heart sounds: Normal heart sounds. Pulmonary: Effort: Pulmonary effort is normal. Breath sounds: Wheezing (diffuse inspiratory and expiratory) present. Comments: tachypneic Skin: General: Skin is warm and dry. Neurological: General: No focal deficit present. Mental Status: He is alert. Assessment and Plan ASSESSMENT/PLAN: 1. SOB (shortness of breath) - ICD9: 786.05, ICD10: R06.02 (primary diagnosis) Patient appears visibly short of breath on exam and unable to finish full sentences. He is very wheezy and tight on auscultation. X-ray not available here at [facility] and I feel he needs further care. Recommended evaluation in the emergency department. Patient declined squad transport. He will go to [facility] ED. ER passport sent for report. 2. Tachypnea - ICD9: 786.06, ICD10: R06.82 Joni Danielle PA-C documented in this encounter [facility] Evaluation note No assessment inform ation available [facility] Work Phone: Evaluation note Diagnosis SOB (shortness of breath)- Primary Shortness of breath Tachypnea [facility] Acute cough [facility] Diagnosis Acute cough- Primary Viral URI with cough Acute upper respiratory infections of unspecified site Acute conjunctivitis of both eyes, unspecified acute conjunctivitis type Acute cough [facility] encounter [facility] (narrative)No reason for referral information availableWBarberton [facility] Work Phone: Advance Directives No Advanced Directives Records Found Advance Directive Response Recorded Date/ Time Advance Directives No November 06, 2016 5:56pm Living Will No November 06 7 5:56pm Power of Rag Baler No November 06 017 5:56pm Advance Directive Response Recorded Date/ Time Advance Directives No November 06, 2016 6:56pm Summary Purpose Family History No Family History Records FoundNo Family History Records Found Additional Source Comments Care Teams (unrecognized sec tion and content) Team Status: Active Member Role Status Dates Dr. Akhil Cox MD Family Provider Active Dr. Akhil Cox MD Primary Care Provider Active Team Status: Inactive Member Role Status Dates Dr. Akhil Cox MD Primary Care Provi edna, Attending Provider, Referring Provider Active Assistant Professor Of Mathematics Relationship Specialty Start Date End Date Akhil Cox MD [address] [facility] [address] [place] [address] PCP - General Family Medicine 01/15/19 Team Status: Active Member Role/Relationship Status Dates Dr. Akhil Cox MD Family Provider Active Dr. Akhil Cox MD Primary Care Provider Active Team Status: Inactive Member Role/Relationship Status Dates Dr. Akhil Cox MD Primary Care Provider Active Start: June 04, 2025 End: June 04, 2025 Dr. Akhil Cox MD Attending Provider Active Start: June 04, 2025 End: June 04, 2025 Dr. Akhil Cox MD Referring Provider Active Start: June 04, 2025 End: June 04, 2025 Assistant Professor Of Mathematics Relationship Specialty Start Date End Date Akhil Cox MD [address] [facility] [address] [place] [address] PCP - General Family Medicine 01/15/19 Assistant Professor Of Mathematics Relationship Specialty Start Date End Date Akhil Cox MD [address] [facility] [address] [place], [place] [address] PCP - General Family Medicine 01/15/19 Goals (unrecognized section and content) Goals may be documented in a n alternate sectionGoals may be documented in an alternate section Source Comments (unrecognize d section and content) In the event this informatio n is protected by the Federal Confidentiality of Alcohol and Drug Abuse Patient Records regulations: The Federal rules restrict any use of the information to criminally investigate or prosecute any alcohol or drug abuse patient.[facility] AdministrationIn the event this information is protected by the Federal Confidentiality of Alcohol and Drug Abuse Patient Records regulations: The Federal rules restrict any use of the information to criminally investigate or prosecute any alcohol or drug abuse patient.[facility] Health AdministrationIn the event this information is protected by the Federal Confidentiality of Alcohol and Drug Abuse Patient Records regulations: The Federal rules restrict any use of the information to criminally investigate or prosecute any alcohol or drug abuse patient.[facility] Reason for Visit (unrecogniz ed section and content) Reason Comments Nasal Congestion cough, sob, upset st omach, diarrhea x 3 days Reason Comments Cough Cough, ST, congestio n and eye irritation x 2-3 days (unrecognized sect ion and content) No Status Records FoundNo Status Records Found INFORMATION SOURCE (unrecogn ized section and content) DATE CREATED AUTHOR 07/21/2025 [facility] DATE CREATED AUTHOR AUTHOR'S ORGANIZ ATION 09/10/2025 [facility] FOR RECORDS PERTAINING TO PATIENTS WHO ARE [...] BE BASED ON THE PRIMARY CLINICAL RECORDS. [employer] [facility]. provides no warranty or guarantee of the accuracy or completeness of information in this document.
--- NOTE | 2025-09-16 06:44 | MRI_ITS ---
PROCEDURE: SPINE LUMBAR (ROUTINE) 09/16/2025 REASON FOR EXAM: WORSENING PAIN X6 MONTHS, LEFT WEAKNESS, NUMBNESS TECHNIQUE: Procedure Code: MRISPL Modality: MR Procedure: SPINE LUMBAR (ROUTINE) COMPARISON: X-ray lumbar spine 07/18/2025. lumbar spine x-ray 09/04/2025. FINDINGS: Vertebrae: Age-indeterminate compression fracture at the upper endplate of L1 with 25% height loss and without retropulsion. This fracture is not seen on x-ray 07/18/2025 and is likely chronic. Alignment: Anatomical alignment. Conus Medullaris: Unremarkable. L1-2: Small disc bulge. Mild canal stenosis. No significant foramina stenosis. L2-3: Small disc bulge. Mild inferior right foramina stenosis. No significant canal stenosis. L3-4: Small disc bulge. Facet joints arthropathy. Ligamentum flavum hypertrophy. Mild inferior bilateral foramina stenosis. Mild canal stenosis. L4-5: Disc bulge. Facet joint arthropathy. A 3 mm superimposed central disc protrusion. Facet joint arthropathy. Mild canal stenosis. Mild bilateral foramina stenosis. L5-S1: Disc bulge. Facet joint arthropathy. No significant foraminal or canal stenosis. Sacrum: Unremarkable. MRI/Spine Lumbar (Routine) IMPRESSION: Age-indeterminate compression fracture at the upper endplate of L1 with 25% hei ght loss and without retropulsion. This fracture is not seen on x-ray 07/18/2025 and is likely chronic. Degenerate changes, predominantly for mild canal stenosis and mild bilateral fo ramina stenosis at L3-L4 and L4-L5. Reading Location: [id number]
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
== END | disposition home or self-care (01) ==
LOC: MRI 06:30
PROVIDERS: PCP Family Medicine; Referring Provider Student in an Organized Health Care Education/Training Program; Visit Provider Student in an Organized Health Care Education/Training Program
DX: M48.062 Spinal stenosis, lumbar region with neurogenic claudication (principal); M51.362 Other intervertebral disc degeneration, lumbar region with discogenic back pain and lower extremity pain
CPT/HCPCS: 70030; 72148